=== PATIENT | male | born 1960 | race African-American/Black ===

== ENCOUNTER 2017-06-09 08:26 | Inpatient (IN) | payer OTHER ==
[2017-06-09 09:13] VITALS: BMI 26.3
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
[2017-06-09] MEDS ORDERED: MAGNESIUM HYDROX 2400MG/30ML ORAL SUSPENSION 30 ML CUP PO PRN (12:47)
[2017-06-09] MEDS ORDERED: LOPERAMIDE HCL 2 MG CAPSULE PO PRN (12:47)
[2017-06-09] MEDS ORDERED: MENTHOL/PHENOL 1 EACH UD MM PRN (12:47)
[2017-06-09] MEDS ORDERED: hydrOXYzine PAMOATE 50 MG CAPSULE (FP) PO PRN (12:47)
[2017-06-09] MEDS ORDERED: chlordiazePOXIDE HCL 25 MG CAPSULE PO PRN (12:47)
[2017-06-09] MEDS ORDERED: guaiFENesin/D-METHORPHAN HB 10 ML UNIT-DOSE CUPS PO PRN (12:47)
[2017-06-09] MEDS ORDERED: ACETAMINOPHEN 325 MG TABLET (FP) PO PRN (12:47)
[2017-06-09] MEDS ORDERED: MAGNESIUM CITRATE 300 ML BOTTLE PO PRN (12:47)
[2017-06-09] MEDS ORDERED: MAG HYDROX/AL HYDROX/SIMETH 30 ML UNIT-DOSE CUP PO PRN (12:47)
[2017-06-09] MEDS ORDERED: P-EPHED 60MG/TRIPROLIDI 2.5MG TABLET PO PRN (12:47)
[2017-06-09] MEDS ORDERED: PATIENT'S OWN MEDICATION (NON-FORMULARY) (Cholecalciferol (Vitamin D3) [Vitamin D3] 10,000 PO SCH (13:00)
[2017-06-09] MEDS ORDERED: chlordiazePOXIDE HCL 25 MG CAPSULE PO ONE (14:15)
[2017-06-09] MEDS ORDERED: METHADONE HCL 10 MG TABLET (FOR DETOX USE ONLY) PO ONE ×2 (14:15→23:00)
[2017-06-09 17:25] LABS: URINE APPEARANCE CLEAR; URINE BILIRUBIN NEGATIVE (NEGATIVE); URINE BLOOD NEGATIVE (NEGATIVE); URINE COLOR LT. YELLOW; URINE GLUCOSE (UA) NEGATIVE (NEGATIVE); URINE KETONE NEGATIVE (NEGATIVE); URINE LEUK ESTERASE NEGATIVE (NEGATIVE); URINE NITRITE NEGATIVE (NEGATIVE); URINE PROTEIN NEGATIVE (NEGATIVE); URINE UROBILINOGEN 0.2 mg/dL (0.2-1.0)
[2017-06-09] MEDS: chlordiazePOXIDE HCL 25 MG CAPSULE PO SCH ×2 (17:59→22:15)
[2017-06-09] MEDS: CHOLECALCIFEROL (VITAMIN D3) 1,000 UNIT TABLET (FP) PO SCH (18:04)
[2017-06-09] MEDS: THIAMINE HCL 100 MG TABLET (FP) PO SCH (22:15)
[2017-06-09] MEDS: diphenhydrAMINE HCL 50 MG CAPSULE PO PRN (22:15)
[2017-06-10] MEDS: chlordiazePOXIDE HCL 25 MG CAPSULE PO SCH ×4 (05:21→22:05)
[2017-06-10] MEDS ORDERED: METHADONE HCL 10 MG TABLET (FOR DETOX USE ONLY) PO SCH (10:00)
[2017-06-10] MEDS: CHOLECALCIFEROL (VITAMIN D3) 1,000 UNIT TABLET (FP) PO SCH (10:05)
[2017-06-10] MEDS: PRENATAL VITAMINS W/ FOLIC ACID TABLET (FP) PO SCH (10:05)
[2017-06-10] MEDS: NICOTINE 21 MG/24 HOURS TOPICAL PATCH TD SCH (10:09)
[2017-06-10 10:23] LABS: MCH 29.7 pg (25.7-33.7); MCHC 32.3 g/dl (32.0-35.9); MEAN CELL VOLUME 92.1 fl (80-96); PLATELET COUNT 205 K/MM3 (134-434); RDW 13.6 % (11.9-15.9); WHITE BLOOD COUNT 6.1 K/mm3 (4.0-10.0)
--- NOTE | 2017-06-10 10:32 | EKG ---
Test Reason : Blood Pressure : / mmHG Vent. Rate : 055 BPM Atrial Rate : 055 BPM P-R Int : 164 ms QRS Dur : 092 ms QT Int : 440 ms P-R-T Axes : 024 011 015 degrees QTc Int : 420 ms SINUS BRADYCARDIA VOLTAGE CRITERIA FOR LEFT VENTRICULAR HYPERTROPHY ABNORMAL ECG NO PREVIOUS ECGS AVAILABLE Confirmed by CUCA LEIJA MD ([id number]) on 06/10/2017 10:32:11 AM Referred By: Confirmed By:CUCA LEIJA MD
--- NOTE | 2017-06-10 10:37 | PN ---
S CIWA - CIWA Score Nausea/Vomitin Muscle Tremors: 3 Anxiety: 3 Agitation: 2 Paroxysmal Sweats: 1-Minimal Palms Moist Orientation: 0-Oriented Tacttile Disturbances: 1-Very Mild Itch/Numbness Auditory Disturbances: 1-Very Mild Visual Disturbances: 1-Very Mild Sensitivity Headache: 2-Mild CIWA-Ar Total Score: 17 BHS COWS - Scale Resting Pulse: 0= DC 80 or Below Sweatin= Chills/Flushing Restless Observation: 3= Extraneous Movement Pupil Size: 1= Pupils >than Normal Bone or Joint Aches: 2= Severe Diffuse Aches Runny Nose/ Eye Tearin= Runny Nose/Eyes GI Upset > 30mins: 2= Nausea/Diarrhea Tremor Observation of Outstretched Hands: 2= Slight Tremor Visible Yawning Observation: 1= 1-2x During Session Anxiety or Irritability: 2=Irritable/Anxious Goose Flesh Skin: 0=Smooth Skin COWS Score: 16 S Progress Note (SOAP) Subjective: ALERT,IRRITABLE,ANXIOUS,INTERRUPTED SLEEP,,TREMOR,PAIN IN THE BODY AND BACK Objective: 06/10/17 10:35 Vital Signs Temperature 98.2 F 06/10/17 10:00 Pulse Rate 60 06/10/17 10:00 Respiratory Rate 18 06/10/17 10:00 Blood Pressure 135/80 06/10/17 10:00 O2 Sat by Pulse Oximetry (%) EKG NSR,SINUS ARRHYTHMIA,LVH NO CHEST PAIN,NO SOB,NO DIZZINESS Laboratory Last Values WBC 6.1 K/mm3 (4.0-10.0) 06/10/17 06:00 RBC 4.64 M/mm3 (4.00-5.60) 06/10/17 06:00 Hgb 13.8 GM/dL (11.7-16.9) 06/10/17 06:00 Hct 42.7 % (35.4-49) 06/10/17 06:00 MCV 92.1 fl (80-96) 06/10/17 06:00 MCH 29.7 pg (25.7-33.7) 06/10/17 06:00 MCHC 32.3 g/dl (32.0-35.9) 06/10/17 06:00 RDW 13.6 % (11.9-15.9) 06/10/17 06:00 Plt Count 205 K/MM3 (134-434) 06/10/17 06:00 MPV 10.0 fl (7.5-11.1) 06/10/17 06:00 Urine Color Lt. yellow 06/09/17 14:00 Urine Appearance Clear 06/09/17 14:00 Urine pH 6.0 (5.0-8.0) 06/09/17 14:00 Ur Specific [place] 1.025 (1.005-1.025) 06/09/17 14:00 Urine Protein Negative (NEGATIVE) 06/09/17 14:00 Urine Glucose (UA) Negative (NEGATIVE) 06/09/17 14:00 Urine Ketones Negative (NEGATIVE) 06/09/17 14:00 Urine Blood Negative (NEGATIVE) 06/09/17 14:00 Urine Nitrite Negative (NEGATIVE) 06/09/17 14:00 Urine Bilirubin Negative (NEGATIVE) 06/09/17 14:00 Urine Urobilinogen 0.2 mg/dL (0.2-1.0) 06/09/17 14:00 Ur Leukocyte Esterase Negative (NEGATIVE) 06/09/17 14:00 LABS PENDING Assessment: 06/10/17 10:37 WITHDRAWAL SYMPTOM Plan: CONTINUE DETOX
[2017-06-10 10:39] LABS: ALBUMIN 3.2 g/dl (3.4-5.0); ALK PHOS 85 U/L (45-117); ANION GAP 5 (8-16); BILIRUBIN,TOTAL 0.3 mg/dL (0.2-1.0); CALCIUM 8.5 mg/dL (8.5-10.1); CO2 32 mmol/L (21-32); GLUCOSE,RANDOM 99 mg/dL (74-106); SGOT/AST 13 U/L (15-37); SGPT/ALT 17 U/L (12-78); TOT PROT 6.4 g/dl (6.4-8.2)
[2017-06-10] MEDS: THIAMINE HCL 100 MG TABLET (FP) PO SCH (22:05)
[2017-06-10] MEDS: diphenhydrAMINE HCL 50 MG CAPSULE PO PRN (22:05)
[2017-06-11] MEDS: chlordiazePOXIDE HCL 25 MG CAPSULE PO SCH ×2 (05:42→11:31)
[2017-06-11] MEDS ORDERED: cloNIDine HCL 0.1 MG TABLET PO ONE (06:45)
--- NOTE | 2017-06-11 11:28 | PN ---
S CIWA - CIWA Score Nausea/Vomitin Muscle Tremors: 3 Anxiety: 2 Agitation: 2 Paroxysmal Sweats: 1-Minimal Palms Moist Orientation: 0-Oriented Tacttile Disturbances: 1-Very Mild Itch/Numbness Auditory Disturbances: 1-Very Mild Visual Disturbances: 1-Very Mild Sensitivity Headache: 2-Mild CIWA-Ar Total Score: 16 BHS COWS - Scale Resting Pulse: 0= [place] 80 or Below Sweatin=Flushed/Facial Moisture Restless Observation: 3= Extraneous Movement Pupil Size: 1= Pupils >than Normal Bone or Joint Aches: 2= Severe Diffuse Aches Runny Nose/ Eye Tearin= Runny Nose/Eyes GI Upset > 30mins: 2= Nausea/Diarrhea Tremor Observation of Outstretched Hands: 2= Slight Tremor Visible Yawning Observation: 1= 1-2x During Session Anxiety or Irritability: 2=Irritable/Anxious Goose Flesh Skin: 0=Smooth Skin COWS Score: 17 S Progress Note (SOAP) Subjective: alert,irritable,anxious,sweating,pain in the body and back,unable to urinate since 6 pm last,night distended bladder Objective: 06/11/17 11:24 Vital Signs Temperature 98.4 F 06/11/17 09:53 Pulse Rate 59 L 06/11/17 09:53 Respiratory Rate 18 06/11/17 09:53 Blood Pressure 150/94 06/11/17 09:53 O2 Sat by Pulse Oximetry (%) Laboratory Last Values WBC 6.1 K/mm3 (4.0-10.0) 06/10/17 06:00 RBC 4.64 M/mm3 (4.00-5.60) 06/10/17 06:00 Hgb 13.8 GM/dL (11.7-16.9) 06/10/17 06:00 Hct 42.7 % (35.4-49) 06/10/17 06:00 MCV 92.1 fl (80-96) 06/10/17 06:00 MCH 29.7 pg (25.7-33.7) 06/10/17 06:00 MCHC 32.3 g/dl (32.0-35.9) 06/10/17 06:00 RDW 13.6 % (11.9-15.9) 06/10/17 06:00 Plt Count 205 K/MM3 (134-434) 06/10/17 06:00 MPV 10.0 fl (7.5-11.1) 06/10/17 06:00 Sodium 144 mmol/L (136-145) 06/10/17 06:00 Potassium 4.1 mmol/L (3.5-5.1) 06/10/17 06:00 Chloride 107 mmol/L (98-107) 06/10/17 06:00 Carbon Dioxide 32 mmol/L (21-32) 06/10/17 06:00 Anion Gap 5 (8-16) L 06/10/17 06:00 BUN 12 mg/dL (7-18) 06/10/17 06:00 Creatinine 1.0 mg/dL (0.7-1.3) 06/10/17 06:00 Creat Clearance w eGFR > 60 (>60) 06/10/17 06:00 Random Glucose 99 mg/dL (74-106) 06/10/17 06:00 Calcium 8.5 mg/dL (8.5-10.1) 06/10/17 06:00 Total Bilirubin 0.3 mg/dL (0.2-1.0) D 06/10/17 06:00 AST 13 U/L (15-37) L 06/10/17 06:00 ALT 17 U/L (12-78) 06/10/17 06:00 Alkaline Phosphatase 85 U/L (45-117) 06/10/17 06:00 Total Protein 6.4 g/dl (6.4-8.2) 06/10/17 06:00 Albumin 3.2 g/dl (3.4-5.0) L 06/10/17 06:00 Urine Color Lt. yellow 06/09/17 14:00 Urine Appearance Clear 06/09/17 14:00 Urine pH 6.0 (5.0-8.0) 06/09/17 14:00 Ur Specific [place] 1.025 (1.005-1.025) 06/09/17 14:00 Urine Protein Negative (NEGATIVE) 06/09/17 14:00 Urine Glucose (UA) Negative (NEGATIVE) 06/09/17 14:00 Urine Ketones Negative (NEGATIVE) 06/09/17 14:00 Urine Blood Negative (NEGATIVE) 06/09/17 14:00 Urine Nitrite Negative (NEGATIVE) 06/09/17 14:00 Urine Bilirubin Negative (NEGATIVE) 06/09/17 14:00 Urine Urobilinogen 0.2 mg/dL (0.2-1.0) 06/09/17 14:00 Ur Leukocyte Esterase Negative (NEGATIVE) 06/09/17 14:00 RPR Titer Nonreactive (NONREACTIVE) 06/10/17 06:00 Assessment: 06/11/17 11:25 withdrawal symptom acute urinary retention Plan: unable to pass the catheter,to er for evaluation,spoke with dr Luc Mccarthy at [facility] er,to be transported by [facility]
[2017-06-11] MEDS: NICOTINE 21 MG/24 HOURS TOPICAL PATCH TD SCH (11:31)
[2017-06-11] MEDS: PRENATAL VITAMINS W/ FOLIC ACID TABLET (FP) PO SCH (11:31)
[2017-06-11] MEDS: METHADONE HCL 5 MG TABLET (FOR DETOX USE ONLY) PO SCH (11:31)
[2017-06-11] MEDS: chlordiazePOXIDE 5 MG CAPSULE PO SCH ×2 (17:42→22:50)
[2017-06-11] MEDS: THIAMINE HCL 100 MG TABLET (FP) PO SCH (22:50)
[2017-06-11] MEDS: SULFAMETHOXAZOLE/TRIMETHOPRIM 800MG/160MG D.S. TABLET PO SCH (22:50)
[2017-06-11] MEDS: diphenhydrAMINE HCL 50 MG CAPSULE PO PRN (22:51)
[2017-06-12] MEDS: chlordiazePOXIDE 5 MG CAPSULE PO SCH ×2 (05:29→10:59)
[2017-06-12] MEDS: PRENATAL VITAMINS W/ FOLIC ACID TABLET (FP) PO SCH (10:59)
[2017-06-12] MEDS: SULFAMETHOXAZOLE/TRIMETHOPRIM 800MG/160MG D.S. TABLET PO SCH ×2 (10:59→22:51)
[2017-06-12] MEDS: IBUPROFEN 600 MG TABLET (FP) PO PRN (10:59)
[2017-06-12] MEDS: METHADONE HCL 5 MG TABLET (FOR DETOX USE ONLY) PO SCH (11:00)
[2017-06-12] MEDS: NICOTINE 21 MG/24 HOURS TOPICAL PATCH TD SCH (11:45)
--- NOTE | 2017-06-12 12:49 | PN ---
[facility] Progress Note (SOAP) Subjective: ALERT,IRRITABLE,ANXIOUS,INTERRUPTED SLEEP,PAIN IN THE BODY AND BACK,HAS CATHETER WITH LEG BAG Objective: 06/12/17 12:48 Vital Signs Temperature 97.5 F L 06/12/17 10:41 Pulse Rate 67 06/12/17 10:41 Respiratory Rate 18 06/12/17 10:41 Blood Pressure 121/74 06/12/17 10:41 O2 Sat by Pulse Oximetry (%) Assessment: 06/12/17 12:48 WITHDRAWAL SYMPTOM Plan: CONTINUE DETOX
[2017-06-12] MEDS: chlordiazePOXIDE HCL 10 MG CAPSULE PO SCH ×2 (18:03→22:51)
[2017-06-12] MEDS: THIAMINE HCL 100 MG TABLET (FP) PO SCH (22:51)
[2017-06-12] MEDS: diphenhydrAMINE HCL 50 MG CAPSULE PO PRN (22:52)
[2017-06-13] MEDS: chlordiazePOXIDE HCL 10 MG CAPSULE PO SCH ×2 (05:20→10:24)
[2017-06-13] MEDS ORDERED: METHADONE HCL 10 MG TABLET (FOR DETOX USE ONLY) PO SCH (10:00)
[2017-06-13] MEDS: SULFAMETHOXAZOLE/TRIMETHOPRIM 800MG/160MG D.S. TABLET PO SCH ×2 (10:23→21:48)
[2017-06-13] MEDS: PRENATAL VITAMINS W/ FOLIC ACID TABLET (FP) PO SCH (10:24)
[2017-06-13] MEDS: CHOLECALCIFEROL (VITAMIN D3) 1,000 UNIT TABLET (FP) PO SCH (10:24)
[2017-06-13] MEDS: NICOTINE 21 MG/24 HOURS TOPICAL PATCH TD SCH (10:24)
--- NOTE | 2017-06-13 11:44 | PN ---
S Progress Note (SOAP) Subjective: ALERT,IRRITABLE,ANXIOUS,INTERRUPTED SLEEP,RETAINED CATHETER WITH LEG BAG Objective: 06/13/17 11:41 Vital Signs Temperature 99.7 F H 06/13/17 10:39 Pulse Rate 58 L 06/13/17 10:39 Respiratory Rate 18 06/13/17 10:39 Blood Pressure 139/75 06/13/17 10:39 O2 Sat by Pulse Oximetry (%) 06/13/17 11:42 Assessment: 06/13/17 11:42 WITHDRAWAL SYMPTOM Plan: CONTINUE DETOX,DISCHARGE IN AM,PATIENT WILL FOLLOW UP WITH UROLOGIST IN [place] UPON DISCHARGE
[2017-06-13] MEDS: IBUPROFEN 600 MG TABLET (FP) PO PRN (12:21)
[2017-06-13] MEDS: THIAMINE HCL 100 MG TABLET (FP) PO SCH (21:48)
[2017-06-13] MEDS: diphenhydrAMINE HCL 50 MG CAPSULE PO PRN (21:48)
[2017-06-14] MEDS ORDERED: METHADONE HCL 5 MG TABLET (FOR DETOX USE ONLY) PO SCH (06:00)
[2017-06-14 06:12] VITALS: BP 142/75; PULSE 54; TEMP 97.9
[2017-06-14] MEDS: IBUPROFEN 600 MG TABLET (FP) PO PRN (06:38)
--- NOTE | 2017-06-14 08:33 | DS ---
[facility] Detox Discharge Summary Admission Date: 06/09/17 Discharge Date: 06/14/17 - History Present History: Alcohol Dependence, Opioid Dependence, Sedative Dependence Additional Comments: PATIENT DEVELOPED URINARY OBSTRUCTION ,NEEDED RETAIN DENNIS CATHETER IN ER AT [facility] WITH RETAINED DENNIS CATHETER WIT LEG BAG,PATIENT LEAVE IN [place], HE WILL GO TO SEE UROLOGIST AT [facility] UPON DISCHARGE Pertinent Past History: NICOTINE DEPENDENCE - Physical Exam Results Vital Signs: Vital Signs Temperature 97.9 F 06/14/17 06:00 Pulse Rate 54 L 06/14/17 06:00 Respiratory Rate 18 06/14/17 06:00 Blood Pressure 142/75 06/14/17 06:00 O2 Sat by Pulse Oximetry (%) Pertinent Admission Physical Exam Findings: WITHDRAWAL FINDING - Treatment Hospital Course: Detox Protocol Followed, Detoxed Safely, Responded well, Discharged Condition Good Patient has Accepted a Rehab Referral to: DECLINED - Medication Discharge Medications: Ambulatory Orders Cholecalciferol (Vitamin D3) [Vitamin D] 2,000 unit PO DAILY 03/11/16 - Diagnosis (1) Urinary (tract) obstruction Current Visit: Yes Status: Acute (2) Alcohol dependence with uncomplicated withdrawal Current Visit: Yes Status: Chronic (3) Nicotine dependence Current Visit: Yes Status: Chronic Qualifiers: Nicotine product type: cigarettes Substance use status: uncomplicated Qualified Code(s): F17.210 - Nicotine dependence, cigarettes, uncomplicated (4) Opioid dependence with withdrawal Current Visit: Yes Status: Chronic (5) Sedative, hypnotic or anxiolytic dependence with withdrawal, uncomplicated Current Visit: Yes Status: Chronic (6) Urinary retention Current Visit: No Status: Acute (7) BPH (benign prostatic hyperplasia) Current Visit: Yes Status: Acute - AMA Did Patient Leave Against Medical Advice: No
== END 2017-06-14 08:51 | disposition home or self-care (01) | DRG 895 ==
LOC: YASAS 08:26 → Y6N 13:14
PROVIDERS: ADMIT Internal Medicine; ATTEND Internal Medicine
PROC: HZ42ZZZ Group Counseling for Substance Abuse Treatment, Cognitive-Behavioral (ICD-10-PCS; principal; 2017-06-14)
DX: F11.23 Opioid dependence with withdrawal (principal); F13.230 Sedative, hypnotic or anxiolytic dependence with withdrawal, uncomplicated; F10.230 Alcohol dependence with withdrawal, uncomplicated; F17.210 Nicotine dependence, cigarettes, uncomplicated; R33.8 Other retention of urine; N40.0 Benign prostatic hyperplasia without lower urinary tract symptoms; Z87.828 Personal history of other (healed) physical injury and trauma
CPT/HCPCS: 36415; 80053; 81003; 85027; 86593; 93005; 93010

== ENCOUNTER 2017-06-11 11:51 | Emergency (ER) | payer OTHER ==
[2017-06-11 12:01] VITALS: TEMP 99; BMI 26.2
[2017-06-11] MEDS ORDERED: LIDOCAINE HCL 2% JELLY 10 ML CARTRIDGE ONE (12:08)
[2017-06-11 12:41] LABS: URINE APPEARANCE CLEAR; URINE BILIRUBIN NEGATIVE (NEGATIVE); URINE BLOOD 1+ (NEGATIVE); URINE COLOR STRAW; URINE GLUCOSE (UA) NEGATIVE (NEGATIVE); URINE KETONE NEGATIVE (NEGATIVE); URINE LEUK ESTERASE NEGATIVE (NEGATIVE); URINE NITRITE NEGATIVE (NEGATIVE); URINE PROTEIN NEGATIVE (NEGATIVE); URINE UROBILINOGEN NEGATIVE mg/dL (0.2-1.0)
[2017-06-11 12:54] LABS: URINE RBC 1 /hpf (0-3); URINE WBC 3 /hpf (3-5)
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
[2017-06-11 13:41] LABS: BASOPHIL 0.7 % (0-2.0); MCH 29.8 pg (25.7-33.7); MCHC 33.1 g/dl (32.0-35.9); MEAN CELL VOLUME 90.1 fl (80-96); MEAN PLT VOLUME 8.9 fl (7.5-11.1); NEUTROPHILS 84.4 % (42.8-82.8); PLATELET COUNT 242 K/MM3 (134-434); RDW 13.7 % (11.9-15.9)
[2017-06-11 14:07] LABS: ALBUMIN 3.4 g/dl (3.4-5.0); ALK PHOS 84 U/L (45-117); ANION GAP 6 (8-16); BILIRUBIN,TOTAL 0.5 mg/dL (0.2-1.0); CO2 32 mmol/L (21-32); CREATININE 1.5 mg/dL (0.7-1.3); GLUCOSE,RANDOM 116 mg/dL (74-106); SGOT/AST 22 U/L (15-37); SGPT/ALT 20 U/L (12-78); TOT PROT 6.9 g/dl (6.4-8.2)
[2017-06-11 14:16] VITALS: BP 158/83; PULSE 61
--- NOTE | 2017-06-11 14:57 | PDOC ---
*Physical Exam - Vital Signs Last Vital Signs Temp Pulse Resp BP Pulse Ox 99.0 F 61 16 158/83 96 06/11/17 11:59 06/11/17 14:15 06/11/17 14:15 06/11/17 14:15 06/11/17 14:15 ED Treatment Course - LABORATORY CBC & Chemistry Diagram: 06/11/17 13:24 06/11/17 13:24 - ADDITIONAL ORDERS Additional order review: Laboratory Results 06/11/17 06/11/17 13:24 12:25 Sodium 144 Potassium 4.0 Chloride 106 Carbon Dioxide 32 Anion Gap 6 L BUN 16 D Creatinine 1.5 H D Creat Clearance w eGFR 48.41 Random Glucose 116 H Calcium 9.0 Total Bilirubin 0.5 D AST 22 D ALT 20 Alkaline Phosphatase 84 Total Protein 6.9 Albumin 3.4 Urine Color Straw Urine Appearance Clear Urine pH 7.0 Urine Protein Negative Urine Glucose (UA) Negative Urine Ketones Negative Urine Blood 1+ H Urine Nitrite Negative Urine Bilirubin Negative Urine Urobilinogen Negative Ur Leukocyte Esterase Negative Urine RBC 1 Urine WBC 3 06/11/17 13:24 RBC 5.09 MCV 90.1 MCHC 33.1 RDW 13.7 MPV 8.9 D Neutrophils % 84.4 H Lymphocytes % 8.2 Monocytes % 6.7 Eosinophils % 0.0 Basophils % 0.7 Medical Decision Making - Medical Decision Making 06/11/17 14:56 Agree with JAVA DEVELOPER's evaluation, assessment, and plan. 57M with acute urinary retention, now with burciaga in place. UA negative for infection. Cr slightly bumped, likely mild post-obstructive uropathy. Pt to f/u with urology for burciaga removal and further evaluation of urinary retention. *DC/Admit/Observation/Transfer Diagnosis at time of Disposition: Urinary retention - Discharge Dispostion Disposition: HOME Condition at time of disposition: Improved - Referrals Referrals: Benito Sotelo MD [Staff Physician] - - Patient Instructions Printed Discharge Instructions: How to Care for Your Burciaga Catheter -- Male, DI for Urinary Retention in Men Additional Instructions: Please patient maintain his Burciaga catheter and follow up with referred urologist. If symptoms return or worsen please have patient come back to the emergency room immediately. - Post Discharge Activity
--- NOTE | 2017-06-11 16:20 | PN ---
[facility] Progress Note Note: patient returned from er,clear to come back for continuing care,urine for c/s pending,retaine catheter with leg bag to start on bactirm ds 1 tab po bid for 7 days
== END 2017-06-11 15:37 | disposition other institution (70) ==
LOC: JER 11:51
PROC: 0T9B70Z Drainage of Bladder with Drainage Device, Via Natural or Artificial Opening (ICD-10-PCS; principal; 2017-06-11)
DX: R33.8 Other retention of urine (principal); F11.10 Opioid abuse, uncomplicated; F10.10 Alcohol abuse, uncomplicated
CPT/HCPCS: 36415; 80053; 81003; 81015; 85025; 87086; 99283-25

== ENCOUNTER 2018-06-21 09:11 | Inpatient (IN) | payer OTHER ==
[2018-06-21 10:08] VITALS: BMI 25.7
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
[2018-06-21] MEDS ORDERED: guaiFENesin/D-METHORPHAN HB 10 ML UNIT-DOSE CUPS PO PRN (12:00)
[2018-06-21] MEDS ORDERED: hydrOXYzine PAMOATE 25 MG CAPSULE (FP) PO PRN (12:00)
[2018-06-21] MEDS ORDERED: MAGNESIUM HYDROX 2400MG/30ML ORAL SUSPENSION 30 ML CUP PO PRN (12:00)
[2018-06-21] MEDS ORDERED: MAGNESIUM CITRATE 300 ML BOTTLE PO PRN (12:00)
[2018-06-21] MEDS ORDERED: P-EPHED 60MG/TRIPROLIDI 2.5MG TABLET PO PRN (12:00)
[2018-06-21] MEDS ORDERED: METHADONE HCL 10 MG TABLET (FOR DETOX USE ONLY) PO ONE ×2 (12:00→23:00)
[2018-06-21] MEDS ORDERED: LOPERAMIDE HCL 2 MG CAPSULE PO PRN (12:00)
[2018-06-21] MEDS ORDERED: MENTHOL/PHENOL 1 EACH UD MM PRN (12:00)
[2018-06-21] MEDS ORDERED: MAG HYDROX/AL HYDROX/SIMETH 30 ML UNIT-DOSE CUP PO PRN (12:00)
[2018-06-21] MEDS ORDERED: CYCLOBENZAPRINE HCL 10 MG TABLET (FP) PO PRN (12:05)
[2018-06-21] MEDS: chlordiazePOXIDE HCL 25 MG CAPSULE PO PRN (13:15)
--- NOTE | 2018-06-21 15:03 | EKG ---
Test Reason : Blood Pressure : / mmHG Vent. Rate : 060 BPM Atrial Rate : 060 BPM P-R Int : 174 ms QRS Dur : 102 ms QT Int : 432 ms P-R-T Axes : 018 -01 -18 degrees QTc Int : 432 ms NORMAL SINUS RHYTHM INCOMPLETE RIGHT BUNDLE BRANCH BLOCK BORDERLINE ECG WHEN COMPARED WITH ECG OF 24-JAN-2018 14:14, NO SIGNIFICANT CHANGE WAS FOUND Confirmed by ZACARIAS MORE, KATERINA ([id number]) on 06/21/2018 3:03:18 PM Referred By: LUZMARIA JAQUEZ Confirmed By:KATERINA ADAMES MD
[2018-06-21] MEDS: chlordiazePOXIDE HCL 25 MG CAPSULE PO SCH ×2 (17:19→22:11)
[2018-06-21 17:46] LABS: URINE APPEARANCE TURBID; URINE COLOR YELLOW; URINE GLUCOSE (UA) NEGATIVE (NEGATIVE); URINE KETONE NEGATIVE (NEGATIVE); URINE LEUK ESTERASE NEGATIVE (NEGATIVE); URINE NITRITE NEGATIVE (NEGATIVE)
[2018-06-21 17:58] LABS: URINE PROTEIN 1+ (NEGATIVE)
[2018-06-21 18:20] LABS: EPI CELLS RARE /HPF (FEW); URINE MUCUS MODERATE
[2018-06-21] MEDS: cloNIDine HCL 0.1 MG TABLET PO SCH (22:10)
[2018-06-21] MEDS: THIAMINE HCL 100 MG TABLET (FP) PO SCH (22:10)
[2018-06-22] MEDS: chlordiazePOXIDE HCL 25 MG CAPSULE PO SCH ×4 (05:31→22:22)
[2018-06-22] MEDS ORDERED: METHADONE HCL 10 MG TABLET (FOR DETOX USE ONLY) PO SCH (10:00)
[2018-06-22 10:17] LABS: MCH 30.2 pg (25.7-33.7); MCHC 32.5 g/dl (32.0-35.9); MEAN PLT VOLUME 9.4 fl (7.5-11.1); PLATELET COUNT 219 K/MM3 (134-434); RDW 13.5 % (11.9-15.9); WHITE BLOOD COUNT 5.5 K/mm3 (4.0-10.0)
[2018-06-22] MEDS: TAMSULOSIN HCL 0.4 MG CAP.ER.24H (FP) PO SCH (10:39)
[2018-06-22] MEDS: PRENATAL VITAMINS W/ FOLIC ACID TABLET (FP) PO SCH (10:39)
[2018-06-22] MEDS: cloNIDine HCL 0.1 MG TABLET PO SCH ×2 (10:39→22:21)
[2018-06-22 12:22] LABS: CHLORIDE 109 mmol/L (98-107); POTASSIUM 4.1 mmol/L (3.5-5.1); SODIUM 144 mmol/L (136-145)
[2018-06-22 12:33] LABS: ALK PHOS 78 U/L (45-117); ANION GAP 6 MMOL/L (8-16); BILIRUBIN,TOTAL 0.8 mg/dL (0.2-1.0); BLOOD UREA NITROGEN 11 mg/dL (7-18); CALCIUM 8.2 mg/dL (8.5-10.1); CO2 29 mmol/L (21-32); CREATININE 0.8 mg/dL (0.7-1.3); GLUCOSE,RANDOM 70 mg/dL (74-106); SGOT/AST 40 U/L (15-37); SGPT/ALT 31 U/L (12-78); TOT PROT 6.6 g/dl (6.4-8.2)
[2018-06-22] MEDS: THIAMINE HCL 100 MG TABLET (FP) PO SCH (22:21)
--- NOTE | 2018-06-22 22:41 | PN ---
S CIWA - CIWA Score Nausea/Vomitin-No Nausea/No Vomiting Muscle Tremors: 3 Anxiety: 3 Agitation: 1-Slight > Activity Paroxysmal Sweats: 3 Orientation: 2-Disoriented Date<2 days Tacttile Disturbances: 2-Mild Itch/Numbness/Burn Auditory Disturbances: 0-None Visual Disturbances: 2-Mild Sensitivity Headache: 0-None Present CIWA-Ar Total Score: 16 BHS COWS - Scale Resting Pulse: 0= [place] 80 or Below Sweatin= Chills/Flushing Restless Observation: 1= Difficult to Sit Still Pupil Size: 0= Normal to Room Light Bone or Joint Aches: 0= None Runny Nose/ Eye Tearin= Nasal Congestion GI Upset > 30mins: 0= None Tremor Observation of Outstretched Hands: 2= Slight Tremor Visible Yawning Observation: 2= >3x During Session Anxiety or Irritability: 2=Irritable/Anxious Goose Flesh Skin: 3=Piloerection COWS Score: 12 S Progress Note (SOAP) Subjective: Fatigue, Sweating, Tremors. Objective: PATIENT A & O X 2 (UNCERTAIN ABOUT CURRENT DAY / DATE). PATIENT OBSERVED AMBULATING ON UNIT. NO ACUTE DISTRESS. 06/22/18 22:39 Vital Signs Temperature 97.9 F 06/22/18 22:21 Pulse Rate 44 L 06/22/18 22:21 Respiratory Rate 18 06/22/18 22:21 Blood Pressure 149/74 06/22/18 22:21 O2 Sat by Pulse Oximetry (%) Laboratory Tests 06/21/18 06/22/18 06/22/18 15:32 06:20 06:20 WBC 5.5 RBC 4.30 Hgb 13.0 Hct 40.0 MCV 93.0 MCH 30.2 MCHC 32.5 RDW 13.5 Plt Count 219 MPV 9.4 Sodium 144 Potassium 4.1 Chloride 109 H Carbon Dioxide 29 Anion Gap 6 L BUN 11 Creatinine 0.8 Creat Clearance w eGFR > 60 Random Glucose 70 L D Calcium 8.2 L Total Bilirubin 0.8 AST 40 H D ALT 31 D Alkaline Phosphatase 78 Total Protein 6.6 Albumin 3.0 L Urine Color Yellow Urine Appearance Turbid Urine pH 5.0 D Ur Specific [place] 1.032 Urine Protein 1+ H Urine Glucose (UA) Negative Urine Ketones Negative Urine Blood Negative Urine Nitrite Negative Urine Bilirubin 2.0 Urine Urobilinogen 2.0 Ur Leukocyte Esterase Negative Urine WBC (Auto) None Urine RBC (Auto) None Ur Epithelial Cells Rare Urine Mucus Moderate RPR Titer 06/22/18 06:20 WBC RBC Hgb Hct MCV MCH MCHC RDW Plt Count MPV Sodium Potassium Chloride Carbon Dioxide Anion Gap BUN Creatinine Creat Clearance w eGFR Random Glucose Calcium Total Bilirubin AST ALT Alkaline Phosphatase Total Protein Albumin Urine Color Urine Appearance Urine pH Ur Specific [place] Urine Protein Urine Glucose (UA) Urine Ketones Urine Blood Urine Nitrite Urine Bilirubin Urine Urobilinogen Ur Leukocyte Esterase Urine WBC (Auto) Urine RBC (Auto) Ur Epithelial Cells Urine Mucus RPR Titer Nonreactive LABS NOTED. Assessment: 06/22/18 22:39 WITHDRAWAL SYMPTOMS. Plan: CONTINUE DETOX. INCREASE DAILY PO FLUID INTAKE.
[2018-06-23] MEDS: chlordiazePOXIDE HCL 25 MG CAPSULE PO SCH ×2 (05:52→10:49)
[2018-06-23] MEDS: METHADONE HCL 5 MG TABLET (FOR DETOX USE ONLY) PO SCH (10:49)
[2018-06-23] MEDS: PRENATAL VITAMINS W/ FOLIC ACID TABLET (FP) PO SCH (10:49)
[2018-06-23] MEDS: cloNIDine HCL 0.1 MG TABLET PO SCH ×2 (10:49→22:46)
[2018-06-23] MEDS: IBUPROFEN 400 MG TABLET (FP) PO PRN ×2 (10:50→22:47)
[2018-06-23] MEDS: TAMSULOSIN HCL 0.4 MG CAP.ER.24H (FP) PO SCH (10:50)
[2018-06-23] MEDS: chlordiazePOXIDE 5 MG CAPSULE PO SCH ×2 (17:18→22:45)
[2018-06-23] MEDS: THIAMINE HCL 100 MG TABLET (FP) PO SCH (22:45)
[2018-06-23] MEDS: MELATONIN 5 MG TABLETS PO PRN (22:46)
[2018-06-24] MEDS: chlordiazePOXIDE 5 MG CAPSULE PO SCH ×2 (05:27→10:14)
[2018-06-24] MEDS: cloNIDine HCL 0.1 MG TABLET PO SCH ×2 (10:14→22:35)
[2018-06-24] MEDS: METHADONE HCL 5 MG TABLET (FOR DETOX USE ONLY) PO SCH (10:14)
[2018-06-24] MEDS: TAMSULOSIN HCL 0.4 MG CAP.ER.24H (FP) PO SCH (10:14)
[2018-06-24] MEDS: PRENATAL VITAMINS W/ FOLIC ACID TABLET (FP) PO SCH (10:15)
[2018-06-24] MEDS: IBUPROFEN 400 MG TABLET (FP) PO PRN ×2 (10:17→17:55)
[2018-06-24] MEDS: chlordiazePOXIDE HCL 25 MG CAPSULE PO PRN (12:00)
[2018-06-24] MEDS: chlordiazePOXIDE HCL 10 MG CAPSULE PO SCH ×2 (17:52→22:36)
--- NOTE | 2018-06-24 18:12 | PN ---
[facility] CIWA - CIWA Score Muscle Tremors: 2 Anxiety: 1-Mildly Anxious Agitation: 1-Slight > Activity Paroxysmal Sweats: 1-Minimal Palms Moist Orientation: 0-Oriented Tacttile Disturbances: 0-None Auditory Disturbances: 0-None Visual Disturbances: 0-None Headache: 0-None Present S COWS - Scale Resting Pulse: 0= [place] 80 or Below Sweatin= Chills/Flushing Restless Observation: 1= Difficult to Sit Still Pupil Size: 1= Pupils >than Normal Bone or Joint Aches: 1= Mild Discomfort Runny Nose/ Eye Tearin= Nasal Congestion GI Upset > 30mins: 1= Stomach Cramp Tremor Observation of Outstretched Hands: 1= Tremor [place], Not Seen Yawning Observation: 0= None Anxiety or Irritability: 1=Feels Anxious/Irritable Goose Flesh Skin: 0=Smooth Skin COWS Score: 8 [facility] Progress Note (SOAP) Subjective: pt states he is feeling like he has no energy- obj: Vital Signs - 24 hr 06/23/18 06/24/18 06/24/18 21:13 00:30 03:30 Temperature 97.7 F Pulse Rate 58 L Respiratory 18 18 18 Rate Blood Pressure 127/81 06/24/18 06/24/18 06/24/18 06:26 11:16 13:52 Temperature 98.4 F 99.4 F 97.6 F Pulse Rate 50 L 56 L 64 Respiratory 18 18 20 Rate Blood Pressure 151/85 114/67 107/75 06/24/18 18:04 Temperature 97.2 F L Pulse Rate 57 L Respiratory 18 Rate Blood Pressure 126/80 Laboratory Tests 06/21/18 06/22/18 06/22/18 15:32 06:20 06:20 WBC 5.5 RBC 4.30 Hgb 13.0 Hct 40.0 MCV 93.0 MCH 30.2 MCHC 32.5 RDW 13.5 Plt Count 219 MPV 9.4 Sodium 144 Potassium 4.1 Chloride 109 H Carbon Dioxide 29 Anion Gap 6 L BUN 11 Creatinine 0.8 Creat Clearance w eGFR > 60 Random Glucose 70 L D Calcium 8.2 L Total Bilirubin 0.8 AST 40 H D ALT 31 D Alkaline Phosphatase 78 Total Protein 6.6 Albumin 3.0 L Urine Color Yellow Urine Appearance Turbid Urine pH 5.0 D Ur Specific [place] 1.032 Urine Protein 1+ H Urine Glucose (UA) Negative Urine Ketones Negative Urine Blood Negative Urine Nitrite Negative Urine Bilirubin 2.0 Urine Urobilinogen 2.0 Ur Leukocyte Esterase Negative Urine WBC (Auto) None Urine RBC (Auto) None Ur Epithelial Cells Rare Urine Mucus Moderate RPR Titer 06/22/18 06:20 WBC RBC Hgb Hct MCV MCH MCHC RDW Plt Count MPV Sodium Potassium Chloride Carbon Dioxide Anion Gap BUN Creatinine Creat Clearance w eGFR Random Glucose Calcium Total Bilirubin AST ALT Alkaline Phosphatase Total Protein Albumin Urine Color Urine Appearance Urine pH Ur Specific [place] Urine Protein Urine Glucose (UA) Urine Ketones Urine Blood Urine Nitrite Urine Bilirubin Urine Urobilinogen Ur Leukocyte Esterase Urine WBC (Auto) Urine RBC (Auto) Ur Epithelial Cells Urine Mucus RPR Titer Nonreactive Ass: here for detox from heroin,alcohol and xanax: continue detox protocol- pt has prn meds if needed for symptomatic treatment
[2018-06-24] MEDS: THIAMINE HCL 100 MG TABLET (FP) PO SCH (22:35)
[2018-06-24] MEDS: MELATONIN 5 MG TABLETS PO PRN (22:36)
[2018-06-25] MEDS: chlordiazePOXIDE HCL 10 MG CAPSULE PO SCH ×2 (05:28→10:17)
[2018-06-25] MEDS: ACETAMINOPHEN 325 MG TABLET (FP) PO PRN ×2 (05:29→15:48)
[2018-06-25] MEDS ORDERED: METHADONE HCL 10 MG TABLET (FOR DETOX USE ONLY) PO SCH (10:00)
[2018-06-25] MEDS: TAMSULOSIN HCL 0.4 MG CAP.ER.24H (FP) PO SCH (10:17)
[2018-06-25] MEDS: PRENATAL VITAMINS W/ FOLIC ACID TABLET (FP) PO SCH (10:17)
[2018-06-25] MEDS: cloNIDine HCL 0.1 MG TABLET PO SCH ×2 (10:17→22:35)
[2018-06-25] MEDS: IBUPROFEN 400 MG TABLET (FP) PO PRN (10:17)
--- NOTE | 2018-06-25 11:20 | PN ---
BHS Progress Note (SOAP) Subjective: OOB AMBULATING WITH STEADY GAIT. ALERT O X 3. SLIGHT ANXIETY, RESTLESSNESS. Objective: 06/25/18 11:19 Vital Signs 06/25/18 06/25/18 06/25/18 03:30 06:06 10:42 Temperature 98.2 F 97.3 F L Pulse Rate 49 L 53 L Respiratory 18 18 18 Rate Blood Pressure 159/88 124/74 Laboratory Tests 06/21/18 06/22/18 06/22/18 15:32 06:20 06:20 WBC 5.5 RBC 4.30 Hgb 13.0 Hct 40.0 MCV 93.0 MCH 30.2 MCHC 32.5 RDW 13.5 Plt Count 219 MPV 9.4 Sodium 144 Potassium 4.1 Chloride 109 H Carbon Dioxide 29 Anion Gap 6 L BUN 11 Creatinine 0.8 Creat Clearance w eGFR > 60 Random Glucose 70 L D Calcium 8.2 L Total Bilirubin 0.8 AST 40 H D ALT 31 D Alkaline Phosphatase 78 Total Protein 6.6 Albumin 3.0 L Urine Color Yellow Urine Appearance Turbid Urine pH 5.0 D Ur Specific [place] 1.032 Urine Protein 1+ H Urine Glucose (UA) Negative Urine Ketones Negative Urine Blood Negative Urine Nitrite Negative Urine Bilirubin 2.0 Urine Urobilinogen 2.0 Ur Leukocyte Esterase Negative Urine WBC (Auto) None Urine RBC (Auto) None Ur Epithelial Cells Rare Urine Mucus Moderate RPR Titer 06/22/18 06:20 WBC RBC Hgb Hct MCV MCH MCHC RDW Plt Count MPV Sodium Potassium Chloride Carbon Dioxide Anion Gap BUN Creatinine Creat Clearance w eGFR Random Glucose Calcium Total Bilirubin AST ALT Alkaline Phosphatase Total Protein Albumin Urine Color Urine Appearance Urine pH Ur Specific [place] Urine Protein Urine Glucose (UA) Urine Ketones Urine Blood Urine Nitrite Urine Bilirubin Urine Urobilinogen Ur Leukocyte Esterase Urine WBC (Auto) Urine RBC (Auto) Ur Epithelial Cells Urine Mucus RPR Titer Nonreactive Assessment: 06/25/18 11:20 WITHDRAWAL SX Plan: CONTINUE DETOX
[2018-06-25] MEDS: THIAMINE HCL 100 MG TABLET (FP) PO SCH (22:34)
[2018-06-25] MEDS: MELATONIN 5 MG TABLETS PO PRN (22:35)
[2018-06-26] MEDS: IBUPROFEN 400 MG TABLET (FP) PO PRN (05:04)
[2018-06-26] MEDS ORDERED: METHADONE HCL 5 MG TABLET (FOR DETOX USE ONLY) PO SCH (06:00)
[2018-06-26 06:14] VITALS: BP 150/77; PULSE 47; TEMP 98.1
--- NOTE | 2018-06-26 11:37 | PN ---
BHS Progress Note (SOAP) Subjective: DETOX COMPLETED. ALERT O 3. NAD. Objective: 06/26/18 11:36 Vital Signs 06/26/18 06:14 Temperature 98.1 F Pulse Rate 47 L Respiratory 18 Rate Blood Pressure 150/77 Laboratory Tests 06/21/18 06/22/18 06/22/18 15:32 06:20 06:20 WBC 5.5 RBC 4.30 Hgb 13.0 Hct 40.0 MCV 93.0 MCH 30.2 MCHC 32.5 RDW 13.5 Plt Count 219 MPV 9.4 Sodium 144 Potassium 4.1 Chloride 109 H Carbon Dioxide 29 Anion Gap 6 L BUN 11 Creatinine 0.8 Creat Clearance w eGFR > 60 Random Glucose 70 L D Calcium 8.2 L Total Bilirubin 0.8 AST 40 H D ALT 31 D Alkaline Phosphatase 78 Total Protein 6.6 Albumin 3.0 L Urine Color Yellow Urine Appearance Turbid Urine pH 5.0 D Ur Specific [place] 1.032 Urine Protein 1+ H Urine Glucose (UA) Negative Urine Ketones Negative Urine Blood Negative Urine Nitrite Negative Urine Bilirubin 2.0 Urine Urobilinogen 2.0 Ur Leukocyte Esterase Negative Urine WBC (Auto) None Urine RBC (Auto) None Ur Epithelial Cells Rare Urine Mucus Moderate RPR Titer 06/22/18 06:20 WBC RBC Hgb Hct MCV MCH MCHC RDW Plt Count MPV Sodium Potassium Chloride Carbon Dioxide Anion Gap BUN Creatinine Creat Clearance w eGFR Random Glucose Calcium Total Bilirubin AST ALT Alkaline Phosphatase Total Protein Albumin Urine Color Urine Appearance Urine pH Ur Specific [place] Urine Protein Urine Glucose (UA) Urine Ketones Urine Blood Urine Nitrite Urine Bilirubin Urine Urobilinogen Ur Leukocyte Esterase Urine WBC (Auto) Urine RBC (Auto) Ur Epithelial Cells Urine Mucus RPR Titer Nonreactive Assessment: 06/26/18 11:36 MEDICALLY STABLE Plan: D/C PT TODAY FOLLOW UP WITH REHAB PLANNED
--- NOTE | 2018-06-26 11:41 | DS ---
[facility] Detox Discharge Summary Admission Date: 06/21/18 Discharge Date: 06/26/18 - History Present History: Alcohol Dependence Additional Comments: DETOX COMPLETED. ALERT O X 3. PT REPORTS HIS PRIMARY CARE IS WITH [facility]. Pertinent Past History: PLEASE SEE DX BELOW - Physical Exam Results Vital Signs: Vital Signs Temperature 98.1 F 06/26/18 06:14 Pulse Rate 47 L 06/26/18 06:14 Respiratory Rate 18 06/26/18 06:14 Blood Pressure 150/77 06/26/18 06:14 O2 Sat by Pulse Oximetry (%) Pertinent Admission Physical Exam Findings: WITHDRAWAL SX Laboratory Tests 06/21/18 06/22/18 06/22/18 15:32 06:20 06:20 WBC 5.5 RBC 4.30 Hgb 13.0 Hct 40.0 MCV 93.0 MCH 30.2 MCHC 32.5 RDW 13.5 Plt Count 219 MPV 9.4 Sodium 144 Potassium 4.1 Chloride 109 H Carbon Dioxide 29 Anion Gap 6 L BUN 11 Creatinine 0.8 Creat Clearance w eGFR > 60 Random Glucose 70 L D Calcium 8.2 L Total Bilirubin 0.8 AST 40 H D ALT 31 D Alkaline Phosphatase 78 Total Protein 6.6 Albumin 3.0 L Urine Color Yellow Urine Appearance Turbid Urine pH 5.0 D Ur Specific [place] 1.032 Urine Protein 1+ H Urine Glucose (UA) Negative Urine Ketones Negative Urine Blood Negative Urine Nitrite Negative Urine Bilirubin 2.0 Urine Urobilinogen 2.0 Ur Leukocyte Esterase Negative Urine WBC (Auto) None Urine RBC (Auto) None Ur Epithelial Cells Rare Urine Mucus Moderate RPR Titer 06/22/18 06:20 WBC RBC Hgb Hct MCV MCH MCHC RDW Plt Count MPV Sodium Potassium Chloride Carbon Dioxide Anion Gap BUN Creatinine Creat Clearance w eGFR Random Glucose Calcium Total Bilirubin AST ALT Alkaline Phosphatase Total Protein Albumin Urine Color Urine Appearance Urine pH Ur Specific [place] Urine Protein Urine Glucose (UA) Urine Ketones Urine Blood Urine Nitrite Urine Bilirubin Urine Urobilinogen Ur Leukocyte Esterase Urine WBC (Auto) Urine RBC (Auto) Ur Epithelial Cells Urine Mucus RPR Titer Nonreactive - Treatment Hospital Course: Detox Protocol Followed, Detoxed Safely, Responded well, Discharged Condition Good - Medication Discharge Medications: Ambulatory Orders Tamsulosin HCl [Flomax -] 0.4 mg PO DAILY 01/24/18 - Diagnosis (1) Alcohol dependence with uncomplicated withdrawal Current Visit: Yes Status: Acute (2) Dehydration Current Visit: Yes Status: Acute (3) Nicotine dependence Current Visit: Yes Status: Acute Qualifiers: Nicotine product type: cigarettes Substance use status: in withdrawal Qualified Code(s): F17.213 - Nicotine dependence, cigarettes, with withdrawal (4) Opioid dependence with withdrawal Current Visit: Yes Status: Acute (5) Weight loss Current Visit: Yes Status: Acute (6) BPH (benign prostatic hyperplasia) Current Visit: Yes Status: Chronic Qualifiers: Lower urinary tract symptom presence: unspecified whether lower urinary tract symptoms present Qualified Code(s): N40.0 - Benign prostatic hyperplasia without lower urinary tract symptoms (7) Sedative, hypnotic or anxiolytic dependence with withdrawal, uncomplicated Current Visit: Yes Status: Acute - AMA Did Patient Leave Against Medical Advice: No
== END 2018-06-26 09:01 | disposition home or self-care (01) | DRG 897 ==
LOC: YASAS 09:11 → Y3N 12:07
PROC: HZ2ZZZZ Detoxification Services for Substance Abuse Treatment (ICD-10-PCS; principal; 2018-06-21)
DX: F11.23 Opioid dependence with withdrawal (principal); S21.102A Unspecified open wound of left front wall of thorax without penetration into thoracic cavity, initial encounter; F13.230 Sedative, hypnotic or anxiolytic dependence with withdrawal, uncomplicated; F10.230 Alcohol dependence with withdrawal, uncomplicated; E86.0 Dehydration; N40.0 Benign prostatic hyperplasia without lower urinary tract symptoms; R63.4 Abnormal weight loss; Z68.25 Body mass index [BMI] 25.0-25.9, adult; S21.102S Unspecified open wound of left front wall of thorax without penetration into thoracic cavity, sequela; W34.00XS Accidental discharge from unspecified firearms or gun, sequela; Z87.828 Personal history of other (healed) physical injury and trauma
CPT/HCPCS: 36415; 80053; 81003; 81015; 85027; 86593; 93005; 93010; J0735

== ENCOUNTER 2018-09-27 08:09 | Inpatient (IN) | payer OTHER ==
[2018-09-27 09:08] VITALS: BMI 27.3
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
[2018-09-27] MEDS ORDERED: MENTHOL/PHENOL 1 EACH UD MM PRN (10:10)
[2018-09-27] MEDS ORDERED: hydrOXYzine PAMOATE 25 MG CAPSULE (FP) PO PRN (10:10)
[2018-09-27] MEDS ORDERED: P-EPHED 60MG/TRIPROLIDI 2.5MG TABLET PO PRN (10:10)
[2018-09-27] MEDS ORDERED: chlordiazePOXIDE HCL 25 MG CAPSULE PO PRN (10:10)
[2018-09-27] MEDS ORDERED: guaiFENesin/D-METHORPHAN HB 10 ML UNIT-DOSE CUPS PO PRN (10:10)
[2018-09-27] MEDS ORDERED: NICOTINE POLACRILEX 2 MG GUM BUC PRN (10:10)
[2018-09-27] MEDS ORDERED: MAGNESIUM CITRATE 300 ML BOTTLE PO PRN (10:10)
[2018-09-27] MEDS ORDERED: MAG HYDROX/AL HYDROX/SIMETH 30 ML UNIT-DOSE CUP PO PRN (10:10)
[2018-09-27] MEDS ORDERED: ACETAMINOPHEN 325 MG TABLET (FP) PO PRN (10:10)
[2018-09-27] MEDS ORDERED: LOPERAMIDE HCL 2 MG CAPSULE PO PRN (10:10)
[2018-09-27] MEDS ORDERED: MAGNESIUM HYDROX 2400MG/30ML ORAL SUSPENSION 30 ML CUP PO PRN (10:10)
[2018-09-27] MEDS ORDERED: METHADONE HCL 10 MG TABLET (FOR DETOX USE ONLY) PO ONE ×2 (11:00→23:00)
[2018-09-27] MEDS: chlordiazePOXIDE HCL 25 MG CAPSULE PO SCH ×2 (17:50→22:30)
[2018-09-27] MEDS: THIAMINE HCL 100 MG TABLET (FP) PO SCH (22:30)
[2018-09-28] MEDS: chlordiazePOXIDE HCL 25 MG CAPSULE PO SCH ×4 (06:00→22:09)
[2018-09-28] MEDS ORDERED: METHADONE HCL 10 MG TABLET (FOR DETOX USE ONLY) PO SCH (10:00)
[2018-09-28 10:12] LABS: HEMOGLOBIN 14.5 GM/dL (11.7-16.9); MCH 30.9 pg (25.7-33.7); MCHC 34.5 g/dl (32.0-35.9); MEAN CELL VOLUME 89.5 fl (80-96); MEAN PLT VOLUME 10.1 fl (7.5-11.1); PLATELET COUNT 258 K/MM3 (134-434); RDW 13.3 % (11.9-15.9); WHITE BLOOD COUNT 5.6 K/mm3 (4.0-10.0)
[2018-09-28] MEDS: NICOTINE 7 MG/24 HOURS TOPICAL PATCH TD SCH (10:47)
[2018-09-28] MEDS: TAMSULOSIN HCL 0.4 MG CAP PO SCH (10:49)
[2018-09-28] MEDS: PRENATAL VITAMINS W/ FOLIC ACID TABLET (FP) PO SCH (10:49)
[2018-09-28 10:51] LABS: SICKLE CELL SCREEN NEGATIVE (NEGATIVE)
--- NOTE | 2018-09-28 11:05 | PN ---
[facility] CIWA - CIWA Score Nausea/Vomitin-Mild Nausea/No Vomiting Muscle Tremors: 3 Anxiety: 2 Agitation: 3 Paroxysmal Sweats: 1-Minimal Palms Moist Orientation: 1-Uncertain about Date Tacttile Disturbances: 0-None Auditory Disturbances: 0-None Visual Disturbances: 0-None Headache: 1-Very Mild CIWA-Ar Total Score: 12 S COWS - Scale Resting Pulse: 0= [place] 80 or Below Sweatin= Chills/Flushing Restless Observation: 0= Sits Still Pupil Size: 0= Normal to Room Light Bone or Joint Aches: 2= Severe Diffuse Aches Runny Nose/ Eye Tearin= Nasal Congestion GI Upset > 30mins: 2= Nausea/Diarrhea Tremor Observation of Outstretched Hands: 2= Slight Tremor Visible Yawning Observation: 1= 1-2x During Session Anxiety or Irritability: 1=Feels Anxious/Irritable Goose Flesh Skin: 0=Smooth Skin COWS Score: 10 [facility] Progress Note (SOAP) Subjective: muscle cramp tremor anxiety restlessness Objective: 09/28/18 11:05 Vital Signs Temperature 98.2 F 09/28/18 09:00 Pulse Rate 55 L 09/28/18 09:00 Respiratory Rate 18 09/28/18 09:00 Blood Pressure 146/77 09/28/18 09:00 O2 Sat by Pulse Oximetry (%) Laboratory Last Values WBC 5.6 K/mm3 (4.0-10.0) 09/28/18 06:00 RBC 4.70 M/mm3 (4.00-5.60) 09/28/18 06:00 Hgb 14.5 GM/dL (11.7-16.9) 09/28/18 06:00 Hct 42.0 % (35.4-49) 09/28/18 06:00 MCV 89.5 fl (80-96) 09/28/18 06:00 MCH 30.9 pg (25.7-33.7) 09/28/18 06:00 MCHC 34.5 g/dl (32.0-35.9) 09/28/18 06:00 RDW 13.3 % (11.9-15.9) 09/28/18 06:00 Plt Count 258 K/MM3 (134-434) 09/28/18 06:00 MPV 10.1 fl (7.5-11.1) 09/28/18 06:00 Sickle Cell Screen Negative (NEGATIVE) 09/28/18 06:00 lab noted Assessment: 09/28/18 11:05 withdrawal sx Plan: continue detox
[2018-09-28 11:08] LABS: ALBUMIN 3.4 g/dl (3.4-5.0); ALK PHOS 91 U/L (45-117); ANION GAP 6 MMOL/L (8-16); BILIRUBIN,TOTAL 0.3 mg/dL (0.2-1); BLOOD UREA NITROGEN 16 mg/dL (7-18); CALCIUM 8.2 mg/dL (8.5-10.1); CHLORIDE 104 mmol/L (98-107); CO2 28 mmol/L (21-32); CREATININE 0.9 mg/dL (0.55-1.3); GLUCOSE,RANDOM 98 mg/dL (74-106); POTASSIUM 4.1 mmol/L (3.5-5.1); SGOT/AST 20 U/L (15-37); SGPT/ALT 19 U/L (13-61); SODIUM 138 mmol/L (136-145); TOT PROT 6.8 g/dl (6.4-8.2)
[2018-09-28] MEDS: THIAMINE HCL 100 MG TABLET (FP) PO SCH (22:08)
[2018-09-29] MEDS: chlordiazePOXIDE HCL 25 MG CAPSULE PO SCH ×2 (06:01→10:16)
[2018-09-29] MEDS: NICOTINE 7 MG/24 HOURS TOPICAL PATCH TD SCH (10:16)
[2018-09-29] MEDS: METHADONE HCL 5 MG TABLET (FOR DETOX USE ONLY) PO SCH (10:16)
[2018-09-29] MEDS: PRENATAL VITAMINS W/ FOLIC ACID TABLET (FP) PO SCH (10:16)
[2018-09-29] MEDS: TAMSULOSIN HCL 0.4 MG CAP PO SCH (10:16)
--- NOTE | 2018-09-29 10:50 | PN ---
S CIWA - CIWA Score Nausea/Vomitin Muscle Tremors: 2 Anxiety: 2 Agitation: 1-Slight > Activity Paroxysmal Sweats: 3 Orientation: 0-Oriented Tacttile Disturbances: 1-Very Mild Itch/Numbness Auditory Disturbances: 0-None Visual Disturbances: 0-None Headache: 0-None Present CIWA-Ar Total Score: 11 [facility] COWS - Scale Resting Pulse: 0= [place] 80 or Below Sweatin= Chills/Flushing Restless Observation: 1= Difficult to Sit Still Pupil Size: 1= Pupils >than Normal Bone or Joint Aches: 1= Mild Discomfort Runny Nose/ Eye Tearin= Nasal Congestion GI Upset > 30mins: 2= Nausea/Diarrhea Tremor Observation of Outstretched Hands: 2= Slight Tremor Visible Yawning Observation: 0= None Anxiety or Irritability: 1=Feels Anxious/Irritable Goose Flesh Skin: 0=Smooth Skin COWS Score: 10 S Progress Note (SOAP) Subjective: sweats, shakes , interrupted sleep Objective: 09/29/18 10:48 Vital Signs Temperature 98.4 F 09/29/18 06:00 Pulse Rate 55 L 09/29/18 07:00 Respiratory Rate 18 09/29/18 07:00 Blood Pressure 127/61 09/29/18 07:00 O2 Sat by Pulse Oximetry (%) Laboratory Tests 09/28/18 09/28/18 06:00 06:00 WBC 5.6 RBC 4.70 Hgb 14.5 Hct 42.0 MCV 89.5 MCH 30.9 MCHC 34.5 RDW 13.3 Plt Count 258 MPV 10.1 Sickle Cell Screen Negative Sodium 138 Potassium 4.1 Chloride 104 Carbon Dioxide 28 Anion Gap 6 L BUN 16 Creatinine 0.9 Creat Clearance w eGFR > 60 Random Glucose 98 Calcium 8.2 L Total Bilirubin 0.3 AST 20 ALT 19 Alkaline Phosphatase 91 Total Protein 6.8 Albumin 3.4 pt aox3 in nad lying in bed Assessment: 09/29/18 10:48 withdrawal sx's Plan: continue detox increase fluids
[2018-09-29] MEDS: IBUPROFEN 400 MG TABLET (FP) PO PRN (13:06)
[2018-09-29] MEDS: chlordiazePOXIDE 5 MG CAPSULE PO SCH ×2 (17:43→22:13)
[2018-09-29] MEDS: THIAMINE HCL 100 MG TABLET (FP) PO SCH (22:13)
[2018-09-29] MEDS: MELATONIN 5 MG TABLETS PO PRN (22:13)
[2018-09-30] MEDS: chlordiazePOXIDE 5 MG CAPSULE PO SCH ×2 (06:33→10:41)
[2018-09-30] MEDS: TAMSULOSIN HCL 0.4 MG CAP PO SCH (10:40)
[2018-09-30] MEDS: METHADONE HCL 5 MG TABLET (FOR DETOX USE ONLY) PO SCH (10:40)
[2018-09-30] MEDS: PRENATAL VITAMINS W/ FOLIC ACID TABLET (FP) PO SCH (10:40)
[2018-09-30] MEDS: NICOTINE 7 MG/24 HOURS TOPICAL PATCH TD SCH (10:41)
--- NOTE | 2018-09-30 11:53 | PN ---
[facility] Progress Note (SOAP) Subjective: Generalized abdominal discomfort, shakes and sweats Objective: 09/30/18 11:52 Vital Signs - 8 hr 09/30/18 09/30/18 06:50 09:16 Temperature 98.1 F 98.1 F Pulse Rate 49 L 55 L Respiratory 16 16 Rate Blood Pressure 132/65 141/80 Laboratory Last Values WBC 5.6 K/mm3 (4.0-10.0) 09/28/18 06:00 RBC 4.70 M/mm3 (4.00-5.60) 09/28/18 06:00 Hgb 14.5 GM/dL (11.7-16.9) 09/28/18 06:00 Hct 42.0 % (35.4-49) 09/28/18 06:00 MCV 89.5 fl (80-96) 09/28/18 06:00 MCH 30.9 pg (25.7-33.7) 09/28/18 06:00 MCHC 34.5 g/dl (32.0-35.9) 09/28/18 06:00 RDW 13.3 % (11.9-15.9) 09/28/18 06:00 Plt Count 258 K/MM3 (134-434) 09/28/18 06:00 MPV 10.1 fl (7.5-11.1) 09/28/18 06:00 Sickle Cell Screen Negative (NEGATIVE) 09/28/18 06:00 Sodium 138 mmol/L (136-145) 09/28/18 06:00 Potassium 4.1 mmol/L (3.5-5.1) 09/28/18 06:00 Chloride 104 mmol/L (98-107) 09/28/18 06:00 Carbon Dioxide 28 mmol/L (21-32) 09/28/18 06:00 Anion Gap 6 MMOL/L (8-16) L 09/28/18 06:00 BUN 16 mg/dL (7-18) 09/28/18 06:00 Creatinine 0.9 mg/dL (0.55-1.3) 09/28/18 06:00 Creat Clearance w eGFR > 60 (>60) 09/28/18 06:00 Random Glucose 98 mg/dL (74-106) 09/28/18 06:00 Calcium 8.2 mg/dL (8.5-10.1) L 09/28/18 06:00 Total Bilirubin 0.3 mg/dL (0.2-1) 09/28/18 06:00 AST 20 U/L (15-37) 09/28/18 06:00 ALT 19 U/L (13-61) 09/28/18 06:00 Alkaline Phosphatase 91 U/L (45-117) 09/28/18 06:00 Total Protein 6.8 g/dl (6.4-8.2) 09/28/18 06:00 Albumin 3.4 g/dl (3.4-5.0) 09/28/18 06:00 RPR Titer Nonreactive (NONREACTIVE) 09/28/18 06:00 Labs noted Assessment: 09/30/18 11:52 Withdrawal sx Plan: Continue detox
[2018-09-30] MEDS: chlordiazePOXIDE HCL 10 MG CAPSULE PO SCH ×2 (17:45→22:17)
[2018-09-30] MEDS: IBUPROFEN 400 MG TABLET (FP) PO PRN (17:48)
--- NOTE | 2018-09-30 21:16 | EKG ---
Test Reason : Blood Pressure : / mmHG Vent. Rate : 064 BPM Atrial Rate : 064 BPM P-R Int : 156 ms QRS Dur : 090 ms QT Int : 414 ms P-R-T Axes : 053 001 -23 degrees QTc Int : 427 ms NORMAL SINUS RHYTHM NONSPECIFIC T WAVE ABNORMALITY ABNORMAL ECG WHEN COMPARED WITH ECG OF 21-JUN-2018 13:00, T WAVE INVERSION NOW EVIDENT IN LATERAL LEADS Confirmed by ZACARIAS MORE, KATERINA ([id number]) on 09/30/2018 9:16:20 PM Referred By: Confirmed By:KATERINA ADAMES MD
[2018-09-30] MEDS: MELATONIN 5 MG TABLETS PO PRN (22:17)
[2018-09-30] MEDS: THIAMINE HCL 100 MG TABLET (FP) PO SCH (22:17)
[2018-10-01] MEDS: chlordiazePOXIDE HCL 10 MG CAPSULE PO SCH ×2 (06:30→10:23)
[2018-10-01] MEDS ORDERED: METHADONE HCL 10 MG TABLET (FOR DETOX USE ONLY) PO SCH (10:00)
[2018-10-01] MEDS: TAMSULOSIN HCL 0.4 MG CAP PO SCH (10:23)
[2018-10-01] MEDS: NICOTINE 7 MG/24 HOURS TOPICAL PATCH TD SCH (10:23)
[2018-10-01] MEDS: PRENATAL VITAMINS W/ FOLIC ACID TABLET (FP) PO SCH (10:23)
[2018-10-01] MEDS: IBUPROFEN 400 MG TABLET (FP) PO PRN ×2 (12:53→22:03)
--- NOTE | 2018-10-01 14:53 | PN ---
[facility] Progress Note (SOAP) Subjective: feeling better sleep better at night no tremor no body aces social with peers in day room Objective: 10/01/18 14:56 Vital Signs Temperature 98.2 F 10/01/18 09:48 Pulse Rate 58 L 10/01/18 09:48 Respiratory Rate 18 10/01/18 09:48 Blood Pressure 139/86 10/01/18 09:48 O2 Sat by Pulse Oximetry (%) Vital Signs Laboratory Last Values WBC 5.6 K/mm3 (4.0-10.0) 09/28/18 06:00 RBC 4.70 M/mm3 (4.00-5.60) 09/28/18 06:00 Hgb 14.5 GM/dL (11.7-16.9) 09/28/18 06:00 Hct 42.0 % (35.4-49) 09/28/18 06:00 MCV 89.5 fl (80-96) 09/28/18 06:00 MCH 30.9 pg (25.7-33.7) 09/28/18 06:00 MCHC 34.5 g/dl (32.0-35.9) 09/28/18 06:00 RDW 13.3 % (11.9-15.9) 09/28/18 06:00 Plt Count 258 K/MM3 (134-434) 09/28/18 06:00 MPV 10.1 fl (7.5-11.1) 09/28/18 06:00 Sickle Cell Screen Negative (NEGATIVE) 09/28/18 06:00 Sodium 138 mmol/L (136-145) 09/28/18 06:00 Potassium 4.1 mmol/L (3.5-5.1) 09/28/18 06:00 Chloride 104 mmol/L (98-107) 09/28/18 06:00 Carbon Dioxide 28 mmol/L (21-32) 09/28/18 06:00 Anion Gap 6 MMOL/L (8-16) L 09/28/18 06:00 BUN 16 mg/dL (7-18) 09/28/18 06:00 Creatinine 0.9 mg/dL (0.55-1.3) 09/28/18 06:00 Creat Clearance w eGFR > 60 (>60) 09/28/18 06:00 Random Glucose 98 mg/dL (74-106) 09/28/18 06:00 Calcium 8.2 mg/dL (8.5-10.1) L 09/28/18 06:00 Total Bilirubin 0.3 mg/dL (0.2-1) 09/28/18 06:00 AST 20 U/L (15-37) 09/28/18 06:00 ALT 19 U/L (13-61) 09/28/18 06:00 Alkaline Phosphatase 91 U/L (45-117) 09/28/18 06:00 Total Protein 6.8 g/dl (6.4-8.2) 09/28/18 06:00 Albumin 3.4 g/dl (3.4-5.0) 09/28/18 06:00 RPR Titer Nonreactive (NONREACTIVE) 09/28/18 06:00 lab noted Assessment: 10/01/18 14:58 mild withdrawal sx Plan: medically supervised detox
[2018-10-01 18:17] VITALS: TEMP 98.1
[2018-10-01] MEDS: THIAMINE HCL 100 MG TABLET (FP) PO SCH (22:02)
[2018-10-01] MEDS: MELATONIN 5 MG TABLETS PO PRN (22:03)
[2018-10-01 22:12] VITALS: BP 133/77; PULSE 62
[2018-10-02] MEDS ORDERED: METHADONE HCL 5 MG TABLET (FOR DETOX USE ONLY) PO SCH (06:00)
[2018-10-02] MEDS: TAMSULOSIN HCL 0.4 MG CAP PO SCH (07:30)
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
== END 2018-10-02 06:45 | disposition home or self-care (01) | DRG 897 ==
LOC: YASAS 08:09 → Y6N 10:51
PROC: HZ2ZZZZ Detoxification Services for Substance Abuse Treatment (ICD-10-PCS; principal; 2018-09-27)
DX: F11.23 Opioid dependence with withdrawal (principal); N39.0 Urinary tract infection, site not specified; F10.230 Alcohol dependence with withdrawal, uncomplicated; F13.230 Sedative, hypnotic or anxiolytic dependence with withdrawal, uncomplicated; F17.210 Nicotine dependence, cigarettes, uncomplicated; F32.9 Major depressive disorder, single episode, unspecified; E86.0 Dehydration; N40.1 Benign prostatic hyperplasia with lower urinary tract symptoms; R33.8 Other retention of urine; N13.9 Obstructive and reflux uropathy, unspecified; R63.4 Abnormal weight loss; Z68.27 Body mass index [BMI] 27.0-27.9, adult; Z87.09 Personal history of other diseases of the respiratory system; Z87.828 Personal history of other (healed) physical injury and trauma
CPT/HCPCS: 36415; 80053; 85027; 85660; 86593; 93005; 93010

== ENCOUNTER 2018-12-14 08:15 | Inpatient (IN) | payer OTHER ==
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
[2018-12-14 09:14] VITALS: BMI 27.2
[2018-12-14] MEDS ORDERED: chlordiazePOXIDE HCL 25 MG CAPSULE PO PRN (09:25)
[2018-12-14] MEDS ORDERED: hydrOXYzine PAMOATE 25 MG CAPSULE (FP) PO PRN (09:25)
[2018-12-14] MEDS ORDERED: MAG HYDROX/AL HYDROX/SIMETH 30 ML UNIT-DOSE CUP PO PRN (09:25)
[2018-12-14] MEDS ORDERED: ACETAMINOPHEN 325 MG TABLET (FP) PO PRN (09:25)
[2018-12-14] MEDS ORDERED: P-EPHED 60MG/TRIPROLIDI 2.5MG TABLET PO PRN (09:25)
[2018-12-14] MEDS ORDERED: MAGNESIUM HYDROX 2400MG/30ML ORAL SUSPENSION 30 ML CUP PO PRN (09:25)
[2018-12-14] MEDS ORDERED: LOPERAMIDE HCL 2 MG CAPSULE PO PRN (09:25)
[2018-12-14] MEDS ORDERED: IBUPROFEN 400 MG TABLET (FP) PO PRN (09:25)
[2018-12-14] MEDS ORDERED: MENTHOL/PHENOL 1 EACH UD MM PRN (09:25)
[2018-12-14] MEDS ORDERED: guaiFENesin/D-METHORPHAN HB 10 ML UNIT-DOSE CUPS PO PRN (09:25)
[2018-12-14] MEDS ORDERED: MAGNESIUM CITRATE 300 ML BOTTLE PO PRN (09:25)
[2018-12-14] MEDS ORDERED: METHADONE HCL 10 MG TABLET (FOR DETOX USE ONLY) PO ONE ×2 (10:30→23:00)
[2018-12-14] MEDS: TAMSULOSIN HCL 0.4 MG CAP PO SCH (11:21)
[2018-12-14] MEDS: PRENATAL VITAMINS W/ FOLIC ACID TABLET (FP) PO SCH (11:21)
[2018-12-14] MEDS: chlordiazePOXIDE HCL 25 MG CAPSULE PO SCH ×3 (11:21→22:18)
[2018-12-14 17:22] LABS: URINE APPEARANCE CLEAR; URINE BILIRUBIN NEGATIVE (<2.0 mg/dL); URINE COLOR AMBER; URINE GLUCOSE (UA) NEGATIVE (NEGATIVE); URINE KETONE NEGATIVE (NEGATIVE); URINE LEUK ESTERASE NEGATIVE (NEGATIVE); URINE NITRITE NEGATIVE (NEGATIVE); URINE PROTEIN 1+ (NEGATIVE); URINE UROBILINOGEN 4.0 E.U/dl mg/dL (0.2-1.0)
[2018-12-14 17:40] LABS: EPI CELLS RARE /HPF (FEW); URINE MUCUS MODERATE
[2018-12-14] MEDS: THIAMINE HCL 100 MG TABLET (FP) PO SCH (22:18)
[2018-12-15] MEDS: chlordiazePOXIDE HCL 25 MG CAPSULE PO SCH ×4 (05:24→22:22)
[2018-12-15] MEDS ORDERED: METHADONE HCL 10 MG TABLET (FOR DETOX USE ONLY) PO SCH (10:00)
[2018-12-15 10:24] LABS: ALBUMIN 3.1 g/dl (3.4-5.0); ALK PHOS 84 U/L (45-117); ANION GAP 6 MMOL/L (8-16); BILIRUBIN,TOTAL 0.6 mg/dL (0.2-1); BLOOD UREA NITROGEN 9 mg/dL (7-18); CALCIUM 8.4 mg/dL (8.5-10.1); CHLORIDE 108 mmol/L (98-107); CO2 26 mmol/L (21-32); GLUCOSE,RANDOM 96 mg/dL (74-106); POTASSIUM 4.1 mmol/L (3.5-5.1); SGOT/AST 15 U/L (15-37); SGPT/ALT 15 U/L (13-61); SODIUM 140 mmol/L (136-145); TOT PROT 6.9 g/dl (6.4-8.2)
[2018-12-15 10:44] LABS: HEMATOCRIT 44.8 % (35.4-49); HEMOGLOBIN 15.1 GM/dL (11.7-16.9); MCH 30.3 pg (25.7-33.7); MCHC 33.7 g/dl (32.0-35.9); MEAN CELL VOLUME 89.9 fl (80-96); MEAN PLT VOLUME 9.1 fl (7.5-11.1); PLATELET COUNT 196 K/MM3 (134-434); RBC 4.99 M/mm3 (4.00-5.60); RDW 13.6 % (11.9-15.9); WHITE BLOOD COUNT 4.3 K/mm3 (4.0-10.0)
[2018-12-15] MEDS: PRENATAL VITAMINS W/ FOLIC ACID TABLET (FP) PO SCH (10:46)
[2018-12-15] MEDS: TAMSULOSIN HCL 0.4 MG CAP PO SCH (10:46)
--- NOTE | 2018-12-15 18:00 | PN ---
S CIWA - CIWA Score Nausea/Vomitin Muscle Tremors: 3 Anxiety: 4-Mod. Anxious/Guarded Agitation: 0-Normal Activity Paroxysmal Sweats: 2 Orientation: 0-Oriented Tacttile Disturbances: 2-Mild Itch/Numbness/Burn Auditory Disturbances: 1-Very Mild Visual Disturbances: 2-Mild Sensitivity Headache: 0-None Present CIWA-Ar Total Score: 16 [facility] COWS - Scale Resting Pulse: 0= [place] 80 or Below Sweatin= Chills/Flushing Restless Observation: 0= Sits Still Pupil Size: 0= Normal to Room Light Bone or Joint Aches: 2= Severe Diffuse Aches Runny Nose/ Eye Tearin= Runny Nose/Eyes GI Upset > 30mins: 2= Nausea/Diarrhea Tremor Observation of Outstretched Hands: 2= Slight Tremor Visible Yawning Observation: 1= 1-2x During Session Anxiety or Irritability: 2=Irritable/Anxious Goose Flesh Skin: 3=Piloerection COWS Score: 15 [facility] Progress Note (SOAP) Subjective: Tremors, Sweating, Anxious, Body Aches, Interrupted Sleep. Objective: PATIENT A & O X 3, OBSERVED AMBULATING ON UNIT. IN NO ACUTE DISTRESS. 12/15/18 17:57 Vital Signs Temperature 99.1 F 12/15/18 17:40 Pulse Rate 51 L 12/15/18 17:40 Respiratory Rate 16 12/15/18 17:40 Blood Pressure 143/77 12/15/18 17:40 O2 Sat by Pulse Oximetry (%) Laboratory Tests 12/14/18 12/15/18 12/15/18 13:30 06:30 06:30 WBC 4.3 RBC 4.99 Hgb 15.1 Hct 44.8 MCV 89.9 MCH 30.3 MCHC 33.7 RDW 13.6 Plt Count 196 D MPV 9.1 Sodium 140 Potassium 4.1 Chloride 108 H Carbon Dioxide 26 Anion Gap 6 L BUN 9 Creatinine 1.0 Creat Clearance w eGFR > 60 Random Glucose 96 Calcium 8.4 L Total Bilirubin 0.6 AST 15 ALT 15 Alkaline Phosphatase 84 Total Protein 6.9 Albumin 3.1 L Urine Color Justina Urine Appearance Clear Urine pH 5.0 Ur Specific [place] 1.030 Urine Protein 1+ H Urine Glucose (UA) Negative Urine Ketones Negative Urine Blood Negative Urine Nitrite Negative Urine Bilirubin Negative Urine Urobilinogen 4.0 e.u/dl Ur Leukocyte Esterase Negative Urine WBC (Auto) 3 Urine RBC (Auto) <1 Ur Epithelial Cells Rare Urine Mucus Moderate RPR Titer 12/15/18 06:30 WBC RBC Hgb Hct MCV MCH MCHC RDW Plt Count MPV Sodium Potassium Chloride Carbon Dioxide Anion Gap BUN Creatinine Creat Clearance w eGFR Random Glucose Calcium Total Bilirubin AST ALT Alkaline Phosphatase Total Protein Albumin Urine Color Urine Appearance Urine pH Ur Specific [place] Urine Protein Urine Glucose (UA) Urine Ketones Urine Blood Urine Nitrite Urine Bilirubin Urine Urobilinogen Ur Leukocyte Esterase Urine WBC (Auto) Urine RBC (Auto) Ur Epithelial Cells Urine Mucus RPR Titer Nonreactive LABS NOTED. Assessment: 12/15/18 17:59 WITHDRAWAL SYMPTOMS. Plan: CONTINUE DETOX. INCREASE DAILY PO FLUID INTAKE. PRN FLEXERIL PO FOR BODY ACHES / MUSCLE SPASMS. CLONIDINE, 0.1 MG PO FOR INTERMITTENT ELEVATED BLOOD PRESSURE READINGS AND FOR SEVERE WITHDRAWAL SYMPTOMS.
[2018-12-15] MEDS: THIAMINE HCL 100 MG TABLET (FP) PO SCH (22:22)
[2018-12-15] MEDS: cloNIDine HCL 0.1 MG TABLET PO SCH (22:22)
[2018-12-16] MEDS: chlordiazePOXIDE HCL 25 MG CAPSULE PO SCH (05:42)
[2018-12-16] MEDS: TAMSULOSIN HCL 0.4 MG CAP PO SCH (10:55)
[2018-12-16] MEDS: cloNIDine HCL 0.1 MG TABLET PO SCH ×2 (10:55→22:25)
[2018-12-16] MEDS: METHADONE HCL 5 MG TABLET (FOR DETOX USE ONLY) PO SCH (10:55)
[2018-12-16] MEDS: PRENATAL VITAMINS W/ FOLIC ACID TABLET (FP) PO SCH (10:55)
[2018-12-16] MEDS: chlordiazePOXIDE 5 MG CAPSULE PO SCH ×3 (10:55→22:25)
--- NOTE | 2018-12-16 18:15 | PN ---
[facility] CIWA - CIWA Score Nausea/Vomitin-No Nausea/No Vomiting Muscle Tremors: 3 Anxiety: 2 Agitation: 2 Paroxysmal Sweats: 3 Orientation: 0-Oriented Tacttile Disturbances: 0-None Auditory Disturbances: 0-None Visual Disturbances: 0-None Headache: 0-None Present CIWA-Ar Total Score: 10 S COWS - Scale Resting Pulse: 0= [place] 80 or Below Sweatin=Flushed/Facial Moisture Restless Observation: 0= Sits Still Pupil Size: 0= Normal to Room Light Bone or Joint Aches: 1= Mild Discomfort Runny Nose/ Eye Tearin= Nasal Congestion GI Upset > 30mins: 0= None Tremor Observation of Outstretched Hands: 2= Slight Tremor Visible Yawning Observation: 1= 1-2x During Session Anxiety or Irritability: 1=Feels Anxious/Irritable Goose Flesh Skin: 0=Smooth Skin COWS Score: 8 S Progress Note (SOAP) Subjective: sweats shakes Objective: 12/16/18 18:13 A & ox 3 in no distress Vital Signs Temperature 98.3 F 12/16/18 17:24 Pulse Rate 51 L 12/16/18 17:24 Respiratory Rate 16 12/16/18 17:24 Blood Pressure 126/71 12/16/18 17:24 O2 Sat by Pulse Oximetry (%) HR low, denies any complaints- EKG earlier seen withdrawal sx Continue detox encourage hydration
[2018-12-16] MEDS: CYCLOBENZAPRINE HCL 10 MG TABLET (FP) PO PRN (22:25)
[2018-12-16] MEDS: MELATONIN 5 MG TABLETS PO PRN (22:25)
[2018-12-16] MEDS: THIAMINE HCL 100 MG TABLET (FP) PO SCH (22:25)
[2018-12-17] MEDS: chlordiazePOXIDE 5 MG CAPSULE PO SCH (05:18)
[2018-12-17] MEDS: METHADONE HCL 5 MG TABLET (FOR DETOX USE ONLY) PO SCH (10:40)
[2018-12-17] MEDS: cloNIDine HCL 0.1 MG TABLET PO SCH ×2 (10:40→22:22)
[2018-12-17] MEDS: PRENATAL VITAMINS W/ FOLIC ACID TABLET (FP) PO SCH (10:40)
[2018-12-17] MEDS: TAMSULOSIN HCL 0.4 MG CAP PO SCH (10:40)
[2018-12-17] MEDS: chlordiazePOXIDE HCL 10 MG CAPSULE PO SCH ×3 (10:41→22:22)
--- NOTE | 2018-12-17 12:38 | PN ---
[facility] CIWA - CIWA Score Nausea/Vomitin-Mild Nausea/No Vomiting Muscle Tremors: 2 Anxiety: 1-Mildly Anxious Agitation: 2 Paroxysmal Sweats: 1-Minimal Palms Moist Orientation: 0-Oriented Tacttile Disturbances: 0-None Auditory Disturbances: 0-None Visual Disturbances: 0-None Headache: 1-Very Mild CIWA-Ar Total Score: 8 BHS COWS - Scale Resting Pulse: 0= [place] 80 or Below Sweatin= Chills/Flushing Restless Observation: 0= Sits Still Pupil Size: 0= Normal to Room Light Bone or Joint Aches: 1= Mild Discomfort Runny Nose/ Eye Tearin= Nasal Congestion GI Upset > 30mins: 1= Stomach Cramp Tremor Observation of Outstretched Hands: 1= Tremor [place], Not Seen Yawning Observation: 1= 1-2x During Session Anxiety or Irritability: 1=Feels Anxious/Irritable Goose Flesh Skin: 0=Smooth Skin COWS Score: 7 [facility] Progress Note (SOAP) Subjective: tremor sweating body aches anxiety Objective: 12/17/18 12:38 Vital Signs Temperature 96.2 F L 12/17/18 09:26 Pulse Rate 81 12/17/18 09:26 Respiratory Rate 18 12/17/18 09:26 Blood Pressure 122/74 12/17/18 09:26 O2 Sat by Pulse Oximetry (%) Laboratory Last Values WBC 4.3 K/mm3 (4.0-10.0) 12/15/18 06:30 RBC 4.99 M/mm3 (4.00-5.60) 12/15/18 06:30 Hgb 15.1 GM/dL (11.7-16.9) 12/15/18 06:30 Hct 44.8 % (35.4-49) 12/15/18 06:30 MCV 89.9 fl (80-96) 12/15/18 06:30 MCH 30.3 pg (25.7-33.7) 12/15/18 06:30 MCHC 33.7 g/dl (32.0-35.9) 12/15/18 06:30 RDW 13.6 % (11.9-15.9) 12/15/18 06:30 Plt Count 196 K/MM3 (134-434) D 12/15/18 06:30 MPV 9.1 fl (7.5-11.1) 12/15/18 06:30 Sodium 140 mmol/L (136-145) 12/15/18 06:30 Potassium 4.1 mmol/L (3.5-5.1) 12/15/18 06:30 Chloride 108 mmol/L (98-107) H 12/15/18 06:30 Carbon Dioxide 26 mmol/L (21-32) 12/15/18 06:30 Anion Gap 6 MMOL/L (8-16) L 12/15/18 06:30 BUN 9 mg/dL (7-18) 12/15/18 06:30 Creatinine 1.0 mg/dL (0.55-1.3) 12/15/18 06:30 Creat Clearance w eGFR > 60 (>60) 12/15/18 06:30 Random Glucose 96 mg/dL (74-106) 12/15/18 06:30 Calcium 8.4 mg/dL (8.5-10.1) L 12/15/18 06:30 Total Bilirubin 0.6 mg/dL (0.2-1) 12/15/18 06:30 AST 15 U/L (15-37) 12/15/18 06:30 ALT 15 U/L (13-61) 12/15/18 06:30 Alkaline Phosphatase 84 U/L (45-117) 12/15/18 06:30 Total Protein 6.9 g/dl (6.4-8.2) 12/15/18 06:30 Albumin 3.1 g/dl (3.4-5.0) L 12/15/18 06:30 Urine Color Justina 12/14/18 13:30 Urine Appearance Clear 12/14/18 13:30 Urine pH 5.0 (5.0-8.0) 12/14/18 13:30 Ur Specific [place] 1.030 (1.010-1.035) 12/14/18 13:30 Urine Protein 1+ (NEGATIVE) H 12/14/18 13:30 Urine Glucose (UA) Negative (NEGATIVE) 12/14/18 13:30 Urine Ketones Negative (NEGATIVE) 12/14/18 13:30 Urine Blood Negative (NEGATIVE) 12/14/18 13:30 Urine Nitrite Negative (NEGATIVE) 12/14/18 13:30 Urine Bilirubin Negative (<2.0 mg/dL) 12/14/18 13:30 Urine Urobilinogen 4.0 e.u/dl mg/dL (0.2-1.0) 12/14/18 13:30 Ur Leukocyte Esterase Negative (NEGATIVE) 12/14/18 13:30 Urine WBC (Auto) 3 /hpf (3-5) 12/14/18 13:30 Urine RBC (Auto) <1 /hpf (0-3) 12/14/18 13:30 Ur Epithelial Cells Rare /HPF (FEW) 12/14/18 13:30 Urine Mucus Moderate 12/14/18 13:30 RPR Titer Nonreactive (NONREACTIVE) 12/15/18 06:30 lab noted Assessment: 12/17/18 12:38 withdrawal sx Plan: continue detox
[2018-12-17] MEDS: THIAMINE HCL 100 MG TABLET (FP) PO SCH (22:22)
[2018-12-17] MEDS: MELATONIN 5 MG TABLETS PO PRN (22:24)
[2018-12-18] MEDS: chlordiazePOXIDE HCL 10 MG CAPSULE PO SCH (05:20)
[2018-12-18] MEDS: CYCLOBENZAPRINE HCL 10 MG TABLET (FP) PO PRN ×3 (05:22→22:27)
[2018-12-18] MEDS ORDERED: METHADONE HCL 10 MG TABLET (FOR DETOX USE ONLY) PO SCH (10:00)
[2018-12-18] MEDS: TAMSULOSIN HCL 0.4 MG CAP PO SCH (10:38)
[2018-12-18] MEDS: cloNIDine HCL 0.1 MG TABLET PO SCH ×2 (10:38→23:24)
[2018-12-18] MEDS: PRENATAL VITAMINS W/ FOLIC ACID TABLET (FP) PO SCH (10:38)
--- NOTE | 2018-12-18 15:25 | PN ---
S CIWA - CIWA Score Nausea/Vomitin-No Nausea/No Vomiting Muscle Tremors: 1-None Visible, but [place] Anxiety: 1-Mildly Anxious Agitation: 1-Slight > Activity Paroxysmal Sweats: 1-Minimal Palms Moist Orientation: 0-Oriented Tacttile Disturbances: 0-None Auditory Disturbances: 0-None Visual Disturbances: 0-None Headache: 0-None Present CIWA-Ar Total Score: 4 BHS COWS - Scale Resting Pulse: 0= [place] 80 or Below Sweatin= Chills/Flushing Restless Observation: 0= Sits Still Pupil Size: 0= Normal to Room Light Bone or Joint Aches: 1= Mild Discomfort Runny Nose/ Eye Tearin= Nasal Congestion GI Upset > 30mins: 0= None Tremor Observation of Outstretched Hands: 1= Tremor [place], Not Seen Yawning Observation: 0= None Anxiety or Irritability: 1=Feels Anxious/Irritable Goose Flesh Skin: 0=Smooth Skin COWS Score: 5 S Progress Note (SOAP) Subjective: feeling better less tremor mild body aches little sweating discuss aftercare with staff patient admitted having hypertension x "years" has trouble keep up with doctors' appointment and remember to take the medication Objective: 12/18/18 15:24 Vital Signs Temperature 97.8 F 12/18/18 13:21 Pulse Rate 50 L 12/18/18 13:21 Respiratory Rate 18 12/18/18 13:21 Blood Pressure 138/74 12/18/18 13:21 O2 Sat by Pulse Oximetry (%) Laboratory Last Values WBC 4.3 K/mm3 (4.0-10.0) 12/15/18 06:30 RBC 4.99 M/mm3 (4.00-5.60) 12/15/18 06:30 Hgb 15.1 GM/dL (11.7-16.9) 12/15/18 06:30 Hct 44.8 % (35.4-49) 12/15/18 06:30 MCV 89.9 fl (80-96) 12/15/18 06:30 MCH 30.3 pg (25.7-33.7) 12/15/18 06:30 MCHC 33.7 g/dl (32.0-35.9) 12/15/18 06:30 RDW 13.6 % (11.9-15.9) 12/15/18 06:30 Plt Count 196 K/MM3 (134-434) D 12/15/18 06:30 MPV 9.1 fl (7.5-11.1) 12/15/18 06:30 Sodium 140 mmol/L (136-145) 12/15/18 06:30 Potassium 4.1 mmol/L (3.5-5.1) 12/15/18 06:30 Chloride 108 mmol/L (98-107) H 12/15/18 06:30 Carbon Dioxide 26 mmol/L (21-32) 12/15/18 06:30 Anion Gap 6 MMOL/L (8-16) L 12/15/18 06:30 BUN 9 mg/dL (7-18) 12/15/18 06:30 Creatinine 1.0 mg/dL (0.55-1.3) 12/15/18 06:30 Creat Clearance w eGFR > 60 (>60) 12/15/18 06:30 Random Glucose 96 mg/dL (74-106) 12/15/18 06:30 Calcium 8.4 mg/dL (8.5-10.1) L 12/15/18 06:30 Total Bilirubin 0.6 mg/dL (0.2-1) 12/15/18 06:30 AST 15 U/L (15-37) 12/15/18 06:30 ALT 15 U/L (13-61) 12/15/18 06:30 Alkaline Phosphatase 84 U/L (45-117) 12/15/18 06:30 Total Protein 6.9 g/dl (6.4-8.2) 12/15/18 06:30 Albumin 3.1 g/dl (3.4-5.0) L 12/15/18 06:30 Urine Color Justina 12/14/18 13:30 Urine Appearance Clear 12/14/18 13:30 Urine pH 5.0 (5.0-8.0) 12/14/18 13:30 Ur Specific [place] 1.030 (1.010-1.035) 12/14/18 13:30 Urine Protein 1+ (NEGATIVE) H 12/14/18 13:30 Urine Glucose (UA) Negative (NEGATIVE) 12/14/18 13:30 Urine Ketones Negative (NEGATIVE) 12/14/18 13:30 Urine Blood Negative (NEGATIVE) 12/14/18 13:30 Urine Nitrite Negative (NEGATIVE) 12/14/18 13:30 Urine Bilirubin Negative (<2.0 mg/dL) 12/14/18 13:30 Urine Urobilinogen 4.0 e.u/dl mg/dL (0.2-1.0) 12/14/18 13:30 Ur Leukocyte Esterase Negative (NEGATIVE) 12/14/18 13:30 Urine WBC (Auto) 3 /hpf (3-5) 12/14/18 13:30 Urine RBC (Auto) <1 /hpf (0-3) 12/14/18 13:30 Ur Epithelial Cells Rare /HPF (FEW) 12/14/18 13:30 Urine Mucus Moderate 12/14/18 13:30 RPR Titer Nonreactive (NONREACTIVE) 12/15/18 06:30 lab noted long history of hypertension Assessment: 12/18/18 15:24 mild withdrawal sx Plan: continue detox
[2018-12-18] MEDS: amLODIPine BESYLATE 10 MG TABLET (FP) PO SCH (17:05)
[2018-12-18] MEDS: THIAMINE HCL 100 MG TABLET (FP) PO SCH (22:27)
[2018-12-19] MEDS ORDERED: METHADONE HCL 5 MG TABLET (FOR DETOX USE ONLY) PO SCH (06:00)
[2018-12-19 10:02] VITALS: BP 125/77; PULSE 65; TEMP 98.7
[2018-12-19] MEDS: cloNIDine HCL 0.1 MG TABLET PO SCH (10:06)
[2018-12-19] MEDS: amLODIPine BESYLATE 10 MG TABLET (FP) PO SCH (10:06)
[2018-12-19] MEDS: PRENATAL VITAMINS W/ FOLIC ACID TABLET (FP) PO SCH (10:06)
[2018-12-19] MEDS: TAMSULOSIN HCL 0.4 MG CAP PO SCH (10:06)
--- NOTE | 2018-12-19 13:57 | DS ---
[facility] Detox Discharge Summary Admission Date: 12/14/18 Discharge Date: 12/19/18 - History Present History: Alcohol Dependence, Opioid Dependence, Sedative Dependence Additional Comments: 58 years old male admitted on 12/14/18 for alcohol benzo and opiate withdrawal stabilization completed detox regimen aftercare [facility] Pertinent Past History: pickle cutter narcan kit from pharmacy keep medication list in wallet bring-in bottles of medication and medication list to aftercare appointment - Physical Exam Results Vital Signs: Vital Signs Temperature 98.7 F 12/19/18 10:01 Pulse Rate 65 12/19/18 10:01 Respiratory Rate 20 12/19/18 10:01 Blood Pressure 125/77 12/19/18 10:01 O2 Sat by Pulse Oximetry (%) Pertinent Admission Physical Exam Findings: alcohol benzo opiate withdrawal sx Laboratory Last Values WBC 4.3 K/mm3 (4.0-10.0) 12/15/18 06:30 RBC 4.99 M/mm3 (4.00-5.60) 12/15/18 06:30 Hgb 15.1 GM/dL (11.7-16.9) 12/15/18 06:30 Hct 44.8 % (35.4-49) 12/15/18 06:30 MCV 89.9 fl (80-96) 12/15/18 06:30 MCH 30.3 pg (25.7-33.7) 12/15/18 06:30 MCHC 33.7 g/dl (32.0-35.9) 12/15/18 06:30 RDW 13.6 % (11.9-15.9) 12/15/18 06:30 Plt Count 196 K/MM3 (134-434) D 12/15/18 06:30 MPV 9.1 fl (7.5-11.1) 12/15/18 06:30 Sodium 140 mmol/L (136-145) 12/15/18 06:30 Potassium 4.1 mmol/L (3.5-5.1) 12/15/18 06:30 Chloride 108 mmol/L (98-107) H 12/15/18 06:30 Carbon Dioxide 26 mmol/L (21-32) 12/15/18 06:30 Anion Gap 6 MMOL/L (8-16) L 12/15/18 06:30 BUN 9 mg/dL (7-18) 12/15/18 06:30 Creatinine 1.0 mg/dL (0.55-1.3) 12/15/18 06:30 Creat Clearance w eGFR > 60 (>60) 12/15/18 06:30 Random Glucose 96 mg/dL (74-106) 12/15/18 06:30 Calcium 8.4 mg/dL (8.5-10.1) L 12/15/18 06:30 Total Bilirubin 0.6 mg/dL (0.2-1) 12/15/18 06:30 AST 15 U/L (15-37) 12/15/18 06:30 ALT 15 U/L (13-61) 12/15/18 06:30 Alkaline Phosphatase 84 U/L (45-117) 12/15/18 06:30 Total Protein 6.9 g/dl (6.4-8.2) 12/15/18 06:30 Albumin 3.1 g/dl (3.4-5.0) L 12/15/18 06:30 Urine Color Justina 12/14/18 13:30 Urine Appearance Clear 12/14/18 13:30 Urine pH 5.0 (5.0-8.0) 12/14/18 13:30 Ur Specific [place] 1.030 (1.010-1.035) 12/14/18 13:30 Urine Protein 1+ (NEGATIVE) H 12/14/18 13:30 Urine Glucose (UA) Negative (NEGATIVE) 12/14/18 13:30 Urine Ketones Negative (NEGATIVE) 12/14/18 13:30 Urine Blood Negative (NEGATIVE) 12/14/18 13:30 Urine Nitrite Negative (NEGATIVE) 12/14/18 13:30 Urine Bilirubin Negative (<2.0 mg/dL) 12/14/18 13:30 Urine Urobilinogen 4.0 e.u/dl mg/dL (0.2-1.0) 12/14/18 13:30 Ur Leukocyte Esterase Negative (NEGATIVE) 12/14/18 13:30 Urine WBC (Auto) 3 /hpf (3-5) 12/14/18 13:30 Urine RBC (Auto) <1 /hpf (0-3) 12/14/18 13:30 Ur Epithelial Cells Rare /HPF (FEW) 12/14/18 13:30 Urine Mucus Moderate 12/14/18 13:30 RPR Titer Nonreactive (NONREACTIVE) 12/15/18 06:30 lab noted - Treatment Hospital Course: Detox Protocol Followed, Detoxed Safely, Responded well, Discharged Condition Good, Rehab Referral Accepted Patient has Accepted a Rehab Referral to: [facility] - Medication Discharge Medications: Ambulatory Orders Tamsulosin HCl [Flomax -] 0.4 mg PO DAILY #30 cap.er.24h 10/01/18 Amlodipine Besylate 10 mg PO ASDIR #30 tablet 12/18/18 Amlodipine Besylate [Norvasc -] 10 mg PO DAILY #14 tablet 12/19/18 Naloxone HCl [Narcan] 4 mg NS ASDIR PRN #1 spray 12/19/18 - Diagnosis (1) Hypertension Status: Chronic Qualifiers: Hypertension type: essential hypertension Qualified Code(s): I10 - Essential (primary) hypertension (2) BPH (benign prostatic hyperplasia) Status: Chronic Qualifiers: Lower urinary tract symptom presence: symptoms absent Qualified Code(s): N40.0 - Benign prostatic hyperplasia without lower urinary tract symptoms (3) Alcohol dependence with uncomplicated withdrawal Status: Acute (4) Nicotine dependence Status: Acute Qualifiers: Nicotine product type: cigarettes Substance use status: in withdrawal Qualified Code(s): F17.213 - Nicotine dependence, cigarettes, with withdrawal (5) Opioid dependence with withdrawal Status: Chronic (6) Sedative, hypnotic or anxiolytic dependence with withdrawal, uncomplicated Status: Acute - AMA Did Patient Leave Against Medical Advice: No
== END 2018-12-19 10:34 | disposition home or self-care (01) | DRG 897 ==
LOC: YASAS 08:15 → Y3N 09:56
PROVIDERS: ADMIT Surgery; ATTEND Surgery
PROC: HZ2ZZZZ Detoxification Services for Substance Abuse Treatment (ICD-10-PCS; principal; 2018-12-14)
DX: F11.23 Opioid dependence with withdrawal (principal); F10.230 Alcohol dependence with withdrawal, uncomplicated; F13.230 Sedative, hypnotic or anxiolytic dependence with withdrawal, uncomplicated; F17.213 Nicotine dependence, cigarettes, with withdrawal; I10 Essential (primary) hypertension; N40.0 Benign prostatic hyperplasia without lower urinary tract symptoms
CPT/HCPCS: 36415; 80053; 81003; 81015; 85027; 86593; J0735